=== PATIENT | male | born 1995 | race Caucasian/White ===

== ENCOUNTER → 2018-06-25 12:00 | Outpatient (CLI) | payer BC, SELFPAY ==
[2018-06-25 12:37] LABS: Basophils # 0.1 K/mm3 (0-0.2); Eosinophils # 0.1 K/mm3 (0.0-0.4); Eosinophils % 1.5 % (0.1-12.0); Hematocrit 48.2 % (42.0-52.0); Hemoglobin 16.7 g/dL (14.1-18.0); Lymphocytes # 1.9 K/mm3 (0.7-4.5); Lymphocytes % 33.3 % (10-50); Mean Corpuscular HGB Conc 34.7 g/dL (31.8-35.4); Mean Corpuscular Hemoglobin 29.6 pg (27.0-31.2); Mean Corpuscular Volume 85.3 fl (80-94); Mean Platelet Volume 7.2 fl (7.4-10.4); Monocytes # 0.5 K/mm3 (0.1-1.0); Monocytes % 9.4 % (1.7-9.3); Neutrophils # 3.1 K/mm3 (1.8-7.8); Neutrophils % 54.9 % (37.0-80.0); Platelet Count 302 K/mm3 (142-424); Red Blood Count 5.65 M/mm3 (4.60-6.20); Red Cell Distribution Width 12.4 % (11.5-17.5); White Blood Count 5.7 K/mm3 (4.8-10.8)
[2018-06-25 13:32] LABS: Alanine Aminotransferase 55 U/L (12-78); Albumin Level 4.8 gm/dL (3.4-5.0); Albumin/Globulin Ratio 1.4 (1.1-1.8); Alkaline Phosphatase 83 U/L (46-116); Amylase 46 U/L (25-115); Anion Gap 16.1 mEq/L (5-15); Aspartate Amino Transferase 20 U/L (15-37); Bilirubin,Total 1.3 mg/dL (0.2-1.0); Blood Urea Nitrogen 13 mg/dL (7-18); Calcium 9.7 mg/dL (8.5-10.1); Carbon Dioxide 24 mmol/L (21.0-32.0); Chloride 103 mmol/L (98-107); Creatinine,Serum 0.98 mg/dL (0.70-1.30); Estimated Glomerular Filt Rate 96 ml/min (>60); GFR (African American) 116 ML/MIN (>60); Globulin 3.5 gm/dl (1.3-3.2); Glucose 109 mg/dL (74-106); Lipase 125 u/L (73-393); Potassium 4.1 mmoL/L (3.5-5.1); Sodium 139 mmol/L (136-145); Total Protein,Serum 8.3 gm/dL (6.4-8.2)
== END ==
PROVIDERS: Visit Provider Physician Assistant
DX: R10.30 Lower abdominal pain, unspecified (principal)
CPT/HCPCS: 36415; 80053; 82150; 83690; 85025

== ENCOUNTER → 2019-10-31 16:44 | Outpatient (CLI) | payer BC, SELFPAY ==
[2019-10-31 17:03] LABS: Adenovirus,PCR Not Detected (NotDetected); Bordetella Pertussis Not Detected (NotDetected); Chlamydophila Pneumoniae, PCR Not Detected (NotDetected); Coronavirus 229E Not Detected (NotDetected); Coronavirus NL63 Not Detected (NotDetected); Coronavirus OC43 Not Detected (NotDetected); Coronovirus HKU1,PCR Not Detected (NotDetected); Human Metapneumovirus Not Detected (NotDetected); Influenza A, PCR Not Detected (NotDetected); Influenza AH1, 2009 Not Detected (NotDetected); Influenza AH1, PCR Not Detected (NotDetected); Influenza AH3,PCR Not Detected (NotDetected); Influenza B, PCR Not Detected (NotDetected); Mycoplasma Pneumoniae, PCR Not Detected (NotDetected); Parainfluenza 1, PCR Not Detected (NotDetected); Parainfluenza 2, PCR Not Detected (NotDetected); Parainfluenza 3, PCR Not Detected (NotDetected); Parainfluenza 4, PCR Not Detected (NotDetected); Respiratory Syncytial Virus Not Detected (NotDetected); Rhinovirus/Enterovirus Not Detected (NotDetected)
[2019-11-02 14:49] LABS: Covid-19 Nasal PCR Sendout Lex NOT DETECTED
== END ==
PROVIDERS: PCP Family Medicine; Visit Provider Family Medicine
DX: Z03.818 Encounter for observation for suspected exposure to other biological agents ruled out (principal)
CPT/HCPCS: 87486; 87581; 87633; 87798; U0004

== ENCOUNTER → 2020-04-06 12:56 | Outpatient (CLI) | payer BC, SELFPAY ==
--- NOTE | 2020-04-06 12:59 | US_ITS ---
PROCEDURE: US TESTICULAR CLINICAL INDICATION: EPIDIDYMORCHITIS Left testicular pain, history of undescended testicle COMPARISON: No exams were available for comparison FINDINGS: The right testicle has an unremarkable appearance measuring 4 4 x 2 cm. Blood flow is present. No right testicular mass. The right epididymis has an unremarkable appearance. No hydrocele. The left testicle has an abnormal appearance measuring 4 by 4.9 x 3.2 cm. Within the central aspect of the left testicle there is a hypoechoic mass. This is well-circumscribed measuring 3.7 x 2.6 cm. There are numerous small calcifications within the mass.. No hydrocele. There is slight hyperemia around the mass. There is a small spermatocele incidentally noted at 4 mm. IMPRESSION: 3.7 x 2.6 cm left testicular mass as described above suspicious for neoplasm and may represent a seminoma. Urology consult suggested. Dictated by: Berry Tinsley MD 04/06/2020 15:47 Berry Tinsley MD in [place] 04/06/2020 15:47
== END ==
PROVIDERS: PCP Family Medicine; Visit Provider Family Medicine
DX: N45.3 Epididymo-orchitis (principal)
CPT/HCPCS: 76870

== ENCOUNTER → 2020-04-16 16:26 | Outpatient (CLI) | payer BC, SELFPAY ==
[2020-04-16 16:29] LABS: MANUAL DIFFERENTIAL MANUAL DIFFERENTIAL (MANUAL DIFF)
[2020-04-16 17:45] LABS: Basophils # 0.1 K/mm3 (0-0.2); Eosinophils # 0.2 K/mm3 (0.0-0.4); Eosinophils % 1.5 % (0.1-12.0); Hematocrit 50.3 % (42.0-52.0); Hemoglobin 16.7 g/dL (14.1-18.0); Lymphocytes # 2.4 K/mm3 (0.7-4.5); Lymphocytes % 23.5 % (10-50); Mean Corpuscular HGB Conc 33.1 g/dL (31.8-35.4); Mean Corpuscular Hemoglobin 29.8 pg (27.0-31.2); Mean Corpuscular Volume 90.2 fl (80-94); Monocytes # 0.8 K/mm3 (0.1-1.0); Monocytes % 7.7 % (1.7-9.3); Neutrophils # 6.6 K/mm3 (1.8-7.8); Neutrophils % 66.3 % (37.0-80.0); Platelet Count 325 K/mm3 (142-424); Red Blood Count 5.58 M/mm3 (4.60-6.20); Red Cell Distribution Width 13.1 % (11.5-17.5)
[2020-04-16 17:49] LABS: Alanine Aminotransferase 66 U/L (12-78); Albumin Level 5.3 g/dl (3.5-5.0); Albumin/Globulin Ratio 1.5 (1.1-1.8); Alkaline Phosphatase 111 U/L (38-126); Anion Gap 15.1 mEq/L (5-15); Aspartate Amino Transferase 37 U/L (17-59); Bilirubin,Total 0.7 mg/dl (0.2-1.3); Blood Urea Nitrogen 12 mg/dl (9-20); Calcium 10.7 mg/dl (8.4-10.2); Carbon Dioxide 26 mmol/L (22.0-30.0); Chloride 102 mmol/L (98-107); Estimated Glomerular Filt Rate 139 ml/min (>60); GFR (African American) 168 ML/MIN (>60); Globulin 3.5 g/dL (1.3-3.2); Glucose 109 mg/dl (74-100); Potassium 4.1 mmoL/L (3.5-5.1); Sodium 139 mmol/L (136-145); Total Protein,Serum 8.8 g/dl (6.3-8.2)
[2020-04-16 18:16] LABS: HCG,Quantitative < 2 mIU/ml (0-5.42)
[2020-04-16 23:10] LABS: Eosinophils % 3 % (0-3); Lymphocytes % 24 % (10-50); Monocytes % 9 % (2-9); Neutrophils % 64 % (42-76); Platelet Estimate Normal; RBC Morphology Normal; Total Cells Counted 100
[2020-04-18 22:07] LABS: AFP, Tumor Marker 1.8 ng/mL (0.0-8.3)
== END ==
PROVIDERS: Visit Provider Urology
DX: N50.89 Other specified disorders of the male genital organs (principal)
CPT/HCPCS: 36415; 80053; 82105; 84702; 85007; 85014; 85018; 85048; 85049

== ENCOUNTER → 2020-04-23 09:34 | Outpatient (CLI) | payer BC, SELFPAY ==
--- NOTE | 2020-04-23 09:35 | CT_ITS ---
PROCEDURE: CT ABDOMEN PELVIS WO/W CON CLINICAL INDICATION: LEFT TESTICULAR MASS Found on ultrasound, history of undescended testicle COMPARISON: Testicular ultrasound 04/06/2020 TECHNIQUE: IV Contrast: 75ML Isovue 370 Oral Contrast None Axial images obtained with sagittal and coronal reformats. All CT scans at the facility use one or more dose reduction, viz: automated exposure control, ma/kV adjustment per patient size (including targeted exams where dose is matched to indication, i.e. head), or iterative reconstruction technique. FINDINGS: LOWER THORAX: No acute finding ABDOMEN & PELVIS: There is no intraperitoneal free air or free fluid. The adrenal glands kidneys, spleen, pancreas, liver, gallbladder have a normal appearance. Urinary bladder prostate gland and seminal vesicles are unremarkable. Imaging includes the scrotum and demonstrates 2 testicles in the scrotal sac. The left testicle contains a low density centrally consistent with the central mass visualized on ultrasound. No calcifications are visible by CT. There is no mass in the left or right inguinal canal. There are several diverticuli at the splenic flexure. There is diffuse wall thickening throughout the sigmoid colon which could be secondary to incomplete distension.. There is a normal right lower quadrant appendix. There is no abdominal or pelvic adenopathy. The major abdominal and pelvic vasculature is normal. Bony structures are unremarkable. IMPRESSION: An abnormal left testicle normally positioned in the scrotal sac. No inguinal mass or other worrisome finding in the abdomen or pelvis. Several diverticuli are located the splenic flexure. There is questionable wall thickening throughout the sigmoid colon versus nondistention. Dictated by: Radha Gilliam MD 04/23/2020 17:38 Radha Gilliam MD in [place] 04/23/2020 17:38
--- NOTE | 2020-04-23 09:35 | CT_ITS ---
PROCEDURE: CT CHEST WO CON CLINICAL INDICATION: LEFT TESTICULAR MASS History of undescended testicle COMPARISON: No exams were available for comparison TECHNIQUE: Axial images obtained with sagittal and coronal reformats. All CT scans at the facility use one or more dose reduction, viz: automated exposure control, ma/kV adjustment per patient size (including targeted exams where dose is matched to indication, i.e. head), or iterative reconstruction technique. FINDINGS: There is a dense calcified left associated calcified lingular granuloma. There is no infiltrate. There are no suspicious lung nodules. Visualized portions of the thyroid gland are unremarkable. Residual thymic tissue is present. There is no suspicious thoracic adenopathy. Vasculature is unremarkable. There is no pleural effusion. Refer to abdomen pelvis CT for findings in the abdomen and pelvis. IMPRESSION: Unremarkable chest CT. Dictated by: Radha Gilliam MD 04/23/2020 17:27 Radha Gilliam MD in [place] 04/23/2020 17:27
== END ==
PROVIDERS: PCP Family Medicine; Visit Provider Urology
DX: N50.89 Other specified disorders of the male genital organs (principal)
CPT/HCPCS: 71250; 74178; Q9967

== ENCOUNTER → 2020-04-28 13:45 | Outpatient (CLI) | payer BC, SELFPAY ==
[2020-04-28 14:37] LABS: Coronavirus 19 IgG Antibody Negative (Negative); Coronavirus 19 IgM Antibody Negative (Negative)
== END ==
PROVIDERS: PCP Family Medicine; Visit Provider Urology
DX: Z01.812 Encounter for preprocedural laboratory examination (principal); Z20.822 Contact with and (suspected) exposure to COVID-19; N50.89 Other specified disorders of the male genital organs
CPT/HCPCS: 36415; 86328

== ENCOUNTER 2020-04-30 07:37 | Day surgery (SDC) | payer BC, SELFPAY ==
[2020-04-24 11:46] VITALS: BMI 30.8
[2020-04-30] VITALS (11 sets, daily range): BP systolic 109–152; BP diastolic 63–94; PULSE 90–103; RESP 12–18; TEMP 36.4–43; O2SAT 96–99
--- NOTE | 2020-04-30 12:59 | P.PN_ITS ---
[facility] Anesthesia Checklist - Structural Data Admitted From: Home Planned Operative Procedure/s: l orchiectomy Consent for Planned Operative Procedure(s) Verified: Yes - Additional verifications Anesthesia Reactions: No Hx Blood Transfusions: No Blood Transfusion Reaction: No - Airway Assessment C-Spine Mobility Assessed: Yes TMJ Mobility Assessed: Yes Dentition: Good Dentition - Neurological Assessment Level of Consciousness: Awake, Alert, Appropriate - Anesthesia Plan Anesthesia Risk discussed: Yes Anesthesia Plan: Verified ASA Class: II Anesthesia Type: General [facility] History I have reviewed the patient's past medical history: Yes Medical History: Reports:: Atrial Fibrillation Denies:: Cancer, Diabetes Mellitus Type 1, Diabetes Mellitus Type 2, Internal Pacemaker, MRSA, Seizures *Have you ever received a pneumonia vaccine?: No *Have you received a flu vaccine this season?: No Other Medical History: Denies: Blood Transfusion Reaction Anesthesia experience/problems:: none Laterality Cases: Bilateral: Tonsillectomy Other Surgeries: Yes: No Previous Surgery, Cardiac Catheterization. No: Pacemaker Amputation: No Fractures: No - *Social History Last grade of school completed: High school graduate Smoking Status: Never smoker Alcohol Intake: never Alcohol Intake Frequency:: holidays/special occasions only Substance Use Type: denies use Last Used Substance: unknown *Occupational Status:: employed Housing: house Household Members: family *Travel in the last 8 weeks: None Family Hx:: Cancer
--- NOTE | 2020-04-30 13:00 | HMH.ANESI ---
[facility] Anesthesia Record Part I Intake, IV Amount: 1,800 Estimated blood loss (mL): 50 Urine output (mL): 0 Blood Pressure: 133/81 SaO2: 97 Pulse Rate: 103 Respiratory Rate: 12 Temperature: 97.5 F Patient is:: Awake, Stable Stable to PACU at:: 12:55
--- NOTE | 2020-04-30 14:42 | HMH.OPNOTE ---
Date of procedure: 04/30/20 Pre-op Diagnosis:: Left testicular mass Post-op Diagnosis:: Same Procedure performed:: Left radical orchiectomy, complicated Surgeon:: Sesar Mendoza MD CARTON FOLDER:: Negro Gonzalez Anesthesia: GETA Estimated blood loss (mL): 20 Clinical Note:: 24-year-old white male with findings of the left testicular mass on exam. Scrotal ultrasound consistent with a intratesticular mass. Preoperative tumor markers are within normal limits and preoperative CT scan showed no evidence of metastatic disease. Patient returns today for radical left orchiectomy. Operative findings:: Left testicular mass, no evidence of gross abnormalities. Operative note:: Patient taken to the operating room after informed consent was obtained. Was placed on the operating table in the supine position and general anesthesia administered. Preoperative antibiotics and sequential compression devices placed. Was then prepped and draped in the standard surgical fashion. Patient has had a prior groin incision for a left undescended testicle at age 10. The old scar is present in the left lower quadrant. Marking pen was used to roel our incision which went right over the old incision. It started 2 cm above and lateral to the pubic tubercle extended for about 10 cm laterally towards the internal ring. Scalpel then used to incise the skin and blunt and sharp dissection performed down to the external oblique fascia. Due to his previous surgery the external ring was not as defined as normal. The external oblique fascia was opened and extended for the length of the incision. The ilioinguinal nerve was noted towards the middle of the incision and crossed the incision to the upper part of the incision. Sharp and blunt dissection was used to take it off of the upper leaflet laid down along the lower leaflet of the fascial layer. We then began dissecting the cord structures from the inside of the fascia superiorly and inferiorly. Once we were able to get around the cord structures a Domitila drain was placed around it and doubly passed and secured tightly. We then dissected proximally and distally. Distally at the external ring it was very scarred and an extensive dissection was needed to free the cord structure up. Once it was freed up pressure from the scrotal region was used to push the testicle back up into the and through the external ring. The gubernacular tissue was very adherent to the inferior portion of the testicle as well and careful sharp and blunt dissection was used to dissect the gubernaculum off of the inferior portion of the testicle. A clamp was placed across the gubernaculum and the testicle was freed up and it was brought up through the incision. Chromic tie was placed across the gubernacular tissue and tied securely and the clamp removed. Attention was turned to the testicle and we freed the cord up to the internal ring and 3 clamps were placed across the testicle and the testicle was removed above the most distal clamp passed off as specimen. Inspection of the testicle revealed no dissection into the testicular tissue. A 0 silk stick tie was placed above the second clamp and tied securely. An 0 silk tie was then passed above the most proximal clamp and tied securely. Clamps were removed and the end of the cord was cauterized and allowed to retract back up through the internal ring. We then irrigated the wound and inspection of the scrotal tissue and abdominal wound revealed no significant bleeding. Hemostasis was achieved of some small venous oozing. A of Vicryl suture was placed over the internal ring closed. The upper fascial leaflet was defined very well but the inferior portion of the fascia was very adherent to the underlying tissues in the sharp and blunt dissection was used to free up the inferior aspect of the external oblique fascia so that we could close it without tension. Towards the external ring however there was not as much 3
--- NOTE | 2020-05-01 08:59 | P.PN_ITS ---
[facility] Anesthesia Record Part II Discharge Time: 13:25 Destination: Surgical Day Care (OP Surgery) PACU nurse assessment reviewed?: Yes Patient Condition:: Good Anesthesia Complications:: None Swallowing reflex intact?: Yes Cyanosis?: No Blood Pressure: 139/70 Pulse Rate: 94 Temperature: 97.8 F Mental Status: Alert & Oriented Pain level:: 3 Nausea and/or vomitting:: None Intake, IV Amount: 0
[2020-05-01 09:00] VITALS: BP 139/70; PULSE 94; TEMP 36.6
== END 2020-04-30 14:05 | disposition home or self-care (01) ==
PROVIDERS: PCP Family Medicine; Visit Provider Urology
PROC: (CPT 54520; principal; 2020-04-30 09:00)
DX: N50.89 Other specified disorders of the male genital organs (principal); I48.91 Unspecified atrial fibrillation; Z79.899 Other long term (current) drug therapy
CPT/HCPCS: 54520; 96374; J2405

== ENCOUNTER → 2020-08-13 09:15 | Outpatient (CLI) | payer BC, SELFPAY ==
--- NOTE | 2020-08-13 09:20 | CT_ITS ---
PROCEDURE: CT ABDOMEN PELVIS W CON CLINICAL INDICATION: TESTICULAR CA Follow up Lt testicular cancer No chemo No new symptoms Prior on pacs COMPARISON: CT CT ABDOMEN PELVIS WO/W CON from 04/23/2020 TECHNIQUE: IV Contrast: 75ML Isovue 370 Oral Contrast None Axial images obtained with sagittal and coronal reformats. All CT scans at the facility use one or more dose reduction, viz: automated exposure control, ma/kV adjustment per patient size (including targeted exams where dose is matched to indication, i.e. head), or iterative reconstruction technique. FINDINGS: LOWER THORAX: No acute finding ABDOMEN & PELVIS: Fatty appearance of the liver. No focal liver lesions identified. Gallbladder, spleen, adrenal glands, pancreas, and kidneys have an unremarkable appearance. There is a tiny cortical cyst in the upper pole of the left kidney at approximately 4 mm. No retroperitoneal adenopathy. No intestinal obstruction or free air. The appendix has an unremarkable appearance. No mesenteric adenopathy. No pelvic mass or abnormal fluid collection. Increased subcutaneous density in left groin consistent with postsurgical changes. Interval left orchiectomy. No acute bony findings are evident. There is a tiny umbilical hernia containing fat. IMPRESSION: 1. No evidence of metastatic disease. 2. Interval left orchectomy Dictated by: Berry Tinsley MD 08/14/2020 08:42 Berry Tinsley MD in [place] 08/14/2020 08:42
--- NOTE | 2020-08-13 09:30 | XR_ITS ---
PROCEDURE: XR CHEST 2V CLINICAL HISTORY: TESTICULAR CA COMPARISON: US US TESTICULAR from 04/06/[address] CHEST WO CON from 04/23/2020 FINDINGS: The cardiomediastinal silhouette and pulmonary vascularity are within normal limits. The lungs are clear without infiltrates, suspicious nodules, or pleural effusions. Calcified granuloma is present within the lingula in there are calcified nodes in the left AP window. No suspicious pulmonary nodules apparent. No acute bony abnormalities. IMPRESSION: No acute findings. Dictated by: Berry Tinsley MD 08/13/2020 12:05 Berry Tinsley MD in [place] 08/13/2020 12:05
== END ==
PROVIDERS: PCP Family Medicine; Visit Provider Internal Medicine Medical Oncology
DX: C62.92 Malignant neoplasm of left testis, unspecified whether descended or undescended (principal)
CPT/HCPCS: 71046; 74177; Q9967

== ENCOUNTER → 2020-08-24 14:51 | Outpatient (CLI) | payer BC, SELFPAY ==
[2020-08-24 15:29] LABS: Basophils # 0.1 K/mm3 (0-0.2); Basophils % 1.7 % (0.1-2.0); Eosinophils # 0.2 K/mm3 (0.0-0.4); Eosinophils % 2.4 % (0.1-12.0); Hematocrit 48.3 % (42.0-52.0); Hemoglobin 16.9 g/dL (14.1-18.0); Lymphocytes # 2.7 K/mm3 (0.7-4.5); Lymphocytes % 34.1 % (10-50); Mean Corpuscular HGB Conc 35.1 g/dL (31.8-35.4); Mean Corpuscular Volume 85.7 fl (80-94); Mean Platelet Volume 7.2 fl (7.4-10.4); Monocytes # 0.8 K/mm3 (0.1-1.0); Monocytes % 10.4 % (1.7-9.3); Neutrophils # 4.1 K/mm3 (1.8-7.8); Neutrophils % 51.4 % (37.0-80.0); Platelet Count 278 K/mm3 (142-424); Red Blood Count 5.64 M/mm3 (4.60-6.20); Red Cell Distribution Width 12.8 % (11.5-17.5); White Blood Count 7.9 K/mm3 (4.8-10.8)
[2020-08-24 15:52] LABS: Chloride 102 mmol/L (98-107); Potassium 4.3 mmoL/L (3.5-5.1); Sodium 141 mmol/L (136-145)
[2020-08-24 15:54] LABS: HCG Qualitative, Serum Negative (Negative)
[2020-08-24 15:55] LABS: Alanine Aminotransferase 57 U/L (12-78); Albumin Level 5.2 g/dl (3.5-5.0); Albumin/Globulin Ratio 1.6 (1.1-1.8); Alkaline Phosphatase 86 U/L (38-126); Anion Gap 16.3 mEq/L (5-15); Aspartate Amino Transferase 35 U/L (17-59); Blood Urea Nitrogen 12 mg/dl (9-20); Carbon Dioxide 27 mmol/L (22.0-30.0); Estimated Glomerular Filt Rate 104 ml/min (>60); GFR (African American) 125 ML/MIN (>60); Globulin 3.2 g/dL (1.3-3.2); Total Protein,Serum 8.4 g/dl (6.3-8.2)
[2020-08-24 15:56] LABS: Calcium 9.9 mg/dl (8.4-10.2); Glucose 91 mg/dl (74-100)
[2020-08-26 10:12] LABS: AFP, Tumor Marker 1.6 ng/mL (0.0-8.3)
== END ==
PROVIDERS: Visit Provider Internal Medicine Medical Oncology
DX: C62.92 Malignant neoplasm of left testis, unspecified whether descended or undescended (principal)
CPT/HCPCS: 36415; 80053; 82105; 84703; 85025

== ENCOUNTER → 2020-11-23 09:28 | Outpatient (CLI) | payer BC, SELFPAY ==
--- NOTE | 2020-11-23 09:32 | CT_ITS ---
PROCEDURE: CT ABDOMEN PELVIS W CON CLINICAL INDICATION: TESTICULAR CANCER COMPARISON: CT CT ABDOMEN PELVIS W CON from 08/13/2020 TECHNIQUE: IV Contrast: 75ML Isovue 370 Oral Contrast 450ml Redicat Axial images obtained with sagittal and coronal reformats. All CT scans at the facility use one or more dose reduction, viz: automated exposure control, ma/kV adjustment per patient size (including targeted exams where dose is matched to indication, i.e. head), or iterative reconstruction technique. FINDINGS: LOWER THORAX: No acute finding ABDOMEN & PELVIS: The liver, spleen, adrenal glands, and gallbladder have an unremarkable appearance. No renal or ureteral calculi. No renal mass. There are few small mesenteric lymph nodes measuring up to 1 cm. These appear slightly more prominent. This however is of questionable clinical significance as the nodes do not meet the criteria for adenopathy. Continued follow-up is suggested. No pelvic mass or abnormal fluid collection. No acute bony anomalies. IMPRESSION: No significant change. There are few mesenteric lymph nodes in the right lower quadrant which appears slightly more prominent which is of questionable clinical significance. Continued follow-up suggested. Dictated by: Berry Tinsley MD 11/26/2020 09:07 Berry Tinsley MD in [place] 11/26/2020 09:07
== END ==
PROVIDERS: PCP Family Medicine; Visit Provider Internal Medicine Medical Oncology
DX: C62.92 Malignant neoplasm of left testis, unspecified whether descended or undescended (principal)
CPT/HCPCS: 74177; Q9967

== ENCOUNTER → 2020-11-29 10:27 | Outpatient (CLI) | payer BC, SELFPAY ==
[2020-11-29 10:59] LABS: Basophils # 0.1 K/mm3 (0-0.2); Basophils % 1.9 % (0.1-2.0); Eosinophils # 0.2 K/mm3 (0.0-0.4); Hematocrit 48.2 % (42.0-52.0); Lymphocytes # 2.1 K/mm3 (0.7-4.5); Lymphocytes % 39.1 % (10-50); Mean Corpuscular HGB Conc 33.3 g/dL (31.8-35.4); Mean Corpuscular Hemoglobin 30.5 pg (27.0-31.2); Mean Corpuscular Volume 91.5 fl (80-94); Mean Platelet Volume 7.8 fl (7.4-10.4); Monocytes # 0.5 K/mm3 (0.1-1.0); Monocytes % 8.6 % (1.7-9.3); Neutrophils # 2.5 K/mm3 (1.8-7.8); Neutrophils % 47.4 % (37.0-80.0); Platelet Count 290 K/mm3 (142-424); Red Blood Count 5.27 M/mm3 (4.60-6.20); Red Cell Distribution Width 13.3 % (11.5-17.5); White Blood Count 5.3 K/mm3 (4.8-10.8)
[2020-11-29 11:50] LABS: Alanine Aminotransferase 54 U/L (12-78); Albumin Level 4.8 g/dl (3.5-5.0); Albumin/Globulin Ratio 1.8 (1.1-1.8); Alkaline Phosphatase 82 U/L (38-126); Anion Gap 16.4 mEq/L (5-15); Aspartate Amino Transferase 40 U/L (17-59); Blood Urea Nitrogen 10 mg/dl (9-20); Calcium 9.9 mg/dl (8.4-10.2); Carbon Dioxide 26 mmol/L (22.0-30.0); Chloride 101 mmol/L (98-107); Estimated Glomerular Filt Rate 103 ml/min (>60); GFR (African American) 124 ML/MIN (>60); Globulin 2.6 g/dL (1.3-3.2); Glucose 109 mg/dl (74-100); Lactate Dehydrogenase 192 U/L (313-618); Potassium 4.4 mmoL/L (3.5-5.1); Sodium 139 mmol/L (136-145); Total Protein,Serum 7.4 g/dl (6.3-8.2)
[2020-11-29 12:07] LABS: HCG,Quantitative < 2 mIU/ml (0-5.42)
[2020-11-30 08:44] LABS: AFP, Tumor Marker 1.5 ng/mL (0.0-8.3)
== END ==
PROVIDERS: Visit Provider Internal Medicine Medical Oncology
DX: C62.92 Malignant neoplasm of left testis, unspecified whether descended or undescended (principal)
CPT/HCPCS: 36415; 80053; 82105; 83615; 84702; 85025

== ENCOUNTER → 2021-02-15 09:45 | Outpatient (CLI) | payer BC, SELFPAY ==
--- NOTE | 2021-02-15 09:49 | CT_ITS ---
PROCEDURE INFORMATION: Exam: CT Abdomen And Pelvis With Contrast Exam date and time: 02/15/2021 9:49 AM Age: 25 years old Clinical indication: Condition or disease; Other: Testicular cancer; Prior surgery; Additional info: Testicular cancer. PT had 1 testicle removed once dx. Rescanned lower pelvis to include testicles. Reformated cor and sag. TECHNIQUE: Imaging protocol: Computed tomography of the abdomen and pelvis with contrast. Radiation optimization: All CT scans at this facility use at least one of these dose optimization techniques: automated exposure control; mA and/or kV adjustment per patient size (includes targeted exams where dose is matched to clinical indication); or iterative reconstruction. Contrast material: ISOVUE; Contrast volume: 75 ml; Contrast route: IV; COMPARISON: CT ABDOMEN PELVIS W CON 11/23/2020 10:23 AM FINDINGS: Liver: Normal. No mass. Gallbladder and bile ducts: Normal. No calcified stones. No ductal dilation. Pancreas: Normal. No ductal dilation. Spleen: Normal. No splenomegaly. Adrenal glands: Normal. No mass. Kidneys and ureters: Stable 5 mm left cortical renal cyst in the superior pole, simple in appearance. No hydronephrosis. Stomach and bowel: Unremarkable. No obstruction. No mucosal thickening. Appendix: No evidence of appendicitis. Intraperitoneal space: Unremarkable. No free air. No significant fluid collection. Vasculature: Unremarkable. No abdominal aortic aneurysm. Lymph nodes: Unremarkable. No enlarged lymph nodes. Urinary bladder: Unremarkable as visualized. Reproductive: Previous left orchiectomy. Bones/joints: Unremarkable. No acute fracture. Soft tissues: Unremarkable. IMPRESSION: 1. Previous left orchiectomy. 2. Stable 5 mm left cortical renal cyst in the superior pole, simple in appearance. No hydronephrosis. 3. No evidence of metastatic disease.
[2021-02-15 11:02] LABS: Basophils # 0.1 K/mm3 (0-0.2); Basophils % 1.3 % (0.1-2.0); Eosinophils # 0.2 K/mm3 (0.0-0.4); Eosinophils % 3.1 % (0.1-12.0); Hematocrit 47.2 % (42.0-52.0); Hemoglobin 16.6 g/dL (14.1-18.0); Lymphocytes # 2.2 K/mm3 (0.7-4.5); Lymphocytes % 39.9 % (10-50); Mean Corpuscular HGB Conc 35.1 g/dL (31.8-35.4); Mean Corpuscular Hemoglobin 30.6 pg (27.0-31.2); Mean Corpuscular Volume 87.3 fl (80-94); Mean Platelet Volume 7.1 fl (7.4-10.4); Monocytes # 0.5 K/mm3 (0.1-1.0); Monocytes % 8.3 % (1.7-9.3); Neutrophils # 2.6 K/mm3 (1.8-7.8); Neutrophils % 47.4 % (37.0-80.0); Platelet Count 281 K/mm3 (142-424); Red Blood Count 5.41 M/mm3 (4.60-6.20); Red Cell Distribution Width 12.6 % (11.5-17.5); White Blood Count 5.4 K/mm3 (4.8-10.8)
[2021-02-15 11:34] LABS: Alanine Aminotransferase 57 U/L (12-78); Anion Gap 11.2 mEq/L (5-15); Aspartate Amino Transferase 38 U/L (17-59); Bilirubin,Total 0.9 mg/dl (0.2-1.3); Blood Urea Nitrogen 14 mg/dl (9-20); Calcium 9.9 mg/dl (8.4-10.2); Carbon Dioxide 25 mmol/L (22.0-30.0); Chloride 103 mmol/L (98-107); Estimated Glomerular Filt Rate 118 ml/min (>60); GFR (African American) 143 ML/MIN (>60); Glucose 104 mg/dl (74-100); Potassium 4.2 mmoL/L (3.5-5.1); Sodium 135 mmol/L (136-145)
[2021-02-15 11:35] LABS: Albumin Level 4.5 g/dl (3.5-5.0); Albumin/Globulin Ratio 1.7 (1.1-1.8); Alkaline Phosphatase 76 U/L (38-126); Globulin 2.7 g/dL (1.3-3.2); Lactate Dehydrogenase 195 U/L (313-618); Total Protein,Serum 7.2 g/dl (6.3-8.2)
[2021-02-15 12:00] LABS: HCG,Quantitative < 2 mIU/ml (0-5.42)
[2021-02-16 09:13] LABS: AFP, Tumor Marker 1.6 ng/mL (0.0-8.3)
== END ==
PROVIDERS: PCP Family Medicine; Visit Provider Internal Medicine Medical Oncology
DX: C62.92 Malignant neoplasm of left testis, unspecified whether descended or undescended (principal)
CPT/HCPCS: 36415; 74177; 80053; 82105; 83615; 84702; 85025; Q9967

== ENCOUNTER → 2021-06-10 07:48 | Outpatient (CLI) | payer BC, SELFPAY ==
--- NOTE | 2021-06-10 07:54 | CT_ITS ---
FINAL REPORT TECHNIQUE: After the administration of intravenous contrast, axial images were obtained through the abdomen and pelvis by computed tomography. This study was performed with technique to keep radiation doses as low as reasonably achievable, (ALARA). Individualized dose reduction techniques using automated exposure control or adjustment of the MA and/or KV according to the patient's size were employed. CLINICAL HISTORY: MALIGNANT NEOPLASM TESTIS COMPARISON: 04/23/2020 FINDINGS: Abdomen: The lung bases are clear. The liver is mildly fatty infiltrated. The spleen is unremarkable. The adrenals are normal. The pancreas is unremarkable. The kidneys enhance appropriately. The aorta is normal in caliber. There is no free fluid or adenopathy. Pelvis: The appendix is normal. There are postoperative changes in the left inguinal region. There are small, stable lower quadrant mesenteric lymph nodes which are likely reactive. The urinary bladder is unremarkable. There is no free fluid, mass or adenopathy. IMPRESSION: Stable, small lower quadrant mesenteric lymph nodes, likely reactive. No acute process. Reviewed, Interpreted and Dictated by Justus Yeh III, MD Transcribed by Sylwia Murrieta Authenticated by Justus Yeh III, MD on 06/10/2021 09:16:58 AM [facility]
--- NOTE | 2021-06-10 08:12 | XR_ITS ---
FINAL REPORT CLINICAL HISTORY: Malignant NEOPLASM TESTIS FINDINGS: Two views of the chest were obtained. The heart size and pulmonary vascularity are within normal limits. The mediastinum is normal. No acute pulmonary abnormality is identified. There is no pneumothorax. The bony thorax is intact. IMPRESSION: No active cardiopulmonary disease. Reviewed, Interpreted and Dictated by Justus Yeh III, MD Transcribed by Christian Banerjee Authenticated by Justus Yeh III, MD on 06/10/2021 09:17:[address] [facility]
[2021-06-10 08:47] LABS: Basophils # 0.1 K/mm3 (0-0.2); Basophils % 1.8 % (0.1-2.0); Eosinophils # 0.2 K/mm3 (0.0-0.4); Eosinophils % 3.4 % (0.1-12.0); Hematocrit 45.4 % (42.0-52.0); Hemoglobin 15.3 g/dL (14.1-18.0); Lymphocytes # 2.3 K/mm3 (0.7-4.5); Lymphocytes % 44.9 % (10-50); Mean Corpuscular HGB Conc 33.7 g/dL (31.8-35.4); Mean Corpuscular Hemoglobin 30.2 pg (27.0-31.2); Mean Corpuscular Volume 89.7 fl (80-94); Mean Platelet Volume 7.7 fl (7.4-10.4); Monocytes # 0.4 K/mm3 (0.1-1.0); Monocytes % 8.3 % (1.7-9.3); Neutrophils # 2.1 K/mm3 (1.8-7.8); Neutrophils % 41.6 % (37.0-80.0); Platelet Count 263 K/mm3 (142-424); Red Blood Count 5.07 M/mm3 (4.60-6.20); Red Cell Distribution Width 13.1 % (11.5-17.5); White Blood Count 5.1 K/mm3 (4.8-10.8)
[2021-06-10 09:49] LABS: Chloride 102 mmol/L (98-107); Potassium 4.6 mmoL/L (3.5-5.1); Sodium 136 mmol/L (136-145)
[2021-06-10 09:51] LABS: Blood Urea Nitrogen 10 mg/dl (9-20)
[2021-06-10 09:52] LABS: Alanine Aminotransferase 68 U/L (12-78); Albumin Level 4.3 g/dl (3.5-5.0); Albumin/Globulin Ratio 1.7 (1.1-1.8); Alkaline Phosphatase 76 U/L (38-126); Anion Gap 11.6 mEq/L (5-15); Aspartate Amino Transferase 42 U/L (17-59); Bilirubin,Total 0.9 mg/dl (0.2-1.3); Carbon Dioxide 27 mmol/L (22.0-30.0); Estimated Glomerular Filt Rate 118 ml/min (>60); GFR (African American) 143 ML/MIN (>60); Globulin 2.6 g/dL (1.3-3.2); Glucose 100 mg/dl (74-100); Total Protein,Serum 6.9 g/dl (6.3-8.2)
[2021-06-10 10:16] LABS: HCG,Quantitative < 2 mIU/ml (0-5.42)
[2021-06-10 10:24] LABS: Lactate Dehydrogenase 191 U/L (313-618)
[2021-06-11 08:35] LABS: AFP, Tumor Marker 1.7 ng/mL (0.0-5.7)
== END ==
PROVIDERS: PCP Family Medicine; Visit Provider Internal Medicine Medical Oncology
DX: C62.92 Malignant neoplasm of left testis, unspecified whether descended or undescended (principal)
CPT/HCPCS: 36415; 71046; 74177; 80053; 82105; 83615; 84702; 85025; Q9967

== ENCOUNTER → 2021-10-03 08:53 | Outpatient (CLI) | payer BC, SELFPAY ==
--- NOTE | 2021-10-03 08:58 | XR_ITS ---
FINAL REPORT CLINICAL HISTORY: .HX TESTICULAR CANCER FINDINGS: PA and lateral views of the chest are obtained. There is no prior exam for comparison. The cardiac and mediastinal silhouettes are within normal limits. The lungs are clear. There is no pleural effusion, pneumothorax, or acute osseous abnormality. IMPRESSION: No radiographic evidence of acute cardiac or pulmonary disease. Reviewed, Interpreted and Dictated by Paola Elizondo MD Transcribed by Marga Gallo Authenticated and [facility]
--- NOTE | 2021-10-03 08:58 | CT_ITS ---
FINAL REPORT TECHNIQUE: Pre-and postcontrast axial imaging of the abdomen and pelvis was obtained. This study was performed with techniques to keep radiation doses as low as reasonably achievable, (ALARA). Individualized dose reduction technique using automated exposure control or adjustment of mA and/or kV according to the patient's size were employed. CLINICAL HISTORY: TESTICULAR CANCER FINDINGS: The lung bases are clear. The liver is diffusely fatty infiltrated. The gallbladder is present. The spleen, adrenal glands, and pancreas are unremarkable. There is no hydronephrosis or solid renal mass. On precontrast imaging, no renal stones are identified. Abdominal GI tract is unremarkable. There is no lymphadenopathy or ascites. The pelvic organs and pelvic portions of the GI tract, including the appendix, are within normal limits. There are changes from left orchiectomy. The prostate is normal. There is no lymphadenopathy or ascites. No acute osseous abnormalities identified. IMPRESSION: No evidence of metastatic disease. Fatty liver. Reviewed, Interpreted and Dictated by Paola Elizondo MD Transcribed by Christian Banerjee Authenticated and [facility]
[2021-10-03 10:41] LABS: Basophils # 0.2 K/mm3 (0-0.2); Basophils % 2.5 % (0.1-2.0); Eosinophils # 0.2 K/mm3 (0.0-0.4); Eosinophils % 2.8 % (0.1-12.0); Hematocrit 49.5 % (42.0-52.0); Lymphocytes # 2.8 K/mm3 (0.7-4.5); Lymphocytes % 37.8 % (10-50); Mean Corpuscular HGB Conc 32.3 g/dL (31.8-35.4); Mean Corpuscular Hemoglobin 29.6 pg (27.0-31.2); Mean Corpuscular Volume 91.7 fl (80-94); Monocytes # 0.7 K/mm3 (0.1-1.0); Monocytes % 9.3 % (1.7-9.3); Neutrophils # 3.5 K/mm3 (1.8-7.8); Neutrophils % 47.7 % (37.0-80.0); Platelet Count 320 K/mm3 (142-424); Red Cell Distribution Width 13.1 % (11.5-17.5); White Blood Count 7.3 K/mm3 (4.8-10.8)
[2021-10-03 12:19] LABS: Chloride 102 mmol/L (98-107); Potassium 4.9 mmoL/L (3.5-5.1); Sodium 137 mmol/L (136-145)
[2021-10-03 12:21] LABS: Alanine Aminotransferase 74 U/L (12-78); Aspartate Amino Transferase 45 U/L (17-59); Blood Urea Nitrogen 11 mg/dl (9-20); Estimated Glomerular Filt Rate 103 ml/min (>60); GFR (African American) 124 ML/MIN (>60)
[2021-10-03 12:22] LABS: Albumin Level 4.5 g/dl (3.5-5.0); Albumin/Globulin Ratio 1.7 (1.1-1.8); Alkaline Phosphatase 87 U/L (38-126); Anion Gap 12.9 mEq/L (5-15); Bilirubin,Total 0.7 mg/dl (0.2-1.3); Calcium 9.8 mg/dl (8.4-10.2); Carbon Dioxide 27 mmol/L (22.0-30.0); Globulin 2.7 g/dL (1.3-3.2); Glucose 103 mg/dl (74-100); Total Protein,Serum 7.2 g/dl (6.3-8.2)
[2021-10-03 12:32] LABS: Lactate Dehydrogenase 177 U/L (313-618)
[2021-10-03 13:37] LABS: HCG,Quantitative < 2 mIU/ml (0-5.42)
[2021-10-04 11:16] LABS: AFP, Tumor Marker 1.6 ng/mL (0.0-5.7)
== END ==
PROVIDERS: PCP Family Medicine; Visit Provider Internal Medicine Medical Oncology
DX: C62.92 Malignant neoplasm of left testis, unspecified whether descended or undescended (principal)
CPT/HCPCS: 36415; 71046; 74178; 80053; 82105; 83615; 84702; 85025; Q9967

== ENCOUNTER → 2022-04-30 09:02 | Outpatient (CLI) | payer OTHER, SELFPAY ==
--- NOTE | 2022-04-30 09:09 | CT_ITS ---
FINAL REPORT TECHNIQUE: Axial CT images of the abdomen and pelvis were obtained after the administration of oral and iv contrast. Coronal reformatted images were also obtained and reviewed.This study was performed with techniques to keep radiation doses as low as reasonably achievable (ALARA). Individualized dose reduction techniques using automated exposure control or adjustment of mA and/or kV according to the patient's size were employed. CLINICAL HISTORY: TESTICULAR CANCER, routine f/u scan. COMPARISON: 10/03/2021 FINDINGS: CT OF THE ABDOMEN AND PELVIS WITH CONTRAST Abdomen: The lung bases are clear. The heart is normal in size. The liver is fatty infiltrated.. The spleen is unremarkable. No adrenal mass is present. The pancreas has an unremarkable appearance. The kidneys are normal, without evidence of mass or hydronephrosis. The aorta is normal in caliber. There is no mass or adenopathy. Pelvis: The appendix is not well-visualized. The urinary bladder is unremarkable. No inflammatory process is seen. There is no evidence of mass or adenopathy. There is no evidence of bowel obstruction. There are postoperative changes in the left inguinal region. There are stable small bilateral inguinal nodes. IMPRESSION: Mild fatty infiltration of the liver. No evidence of metastatic disease. Reviewed, Interpreted and Dictated by Justus Yeh III, MD Transcribed by Pari Shirley Authenticated and [facility]
--- NOTE | 2022-04-30 09:10 | XR_ITS ---
FINAL REPORT CLINICAL HISTORY: TESTICULAR CANCER COMPARISON: 10/03/2021 FINDINGS: Two views of the chest were obtained. The heart size and pulmonary vascularity are within normal limits. The mediastinum is normal. No acute pulmonary abnormality is identified. There is no pneumothorax. The bony thorax is intact. IMPRESSION: No active cardiopulmonary disease. Reviewed, Interpreted and Dictated by Justus Yeh III, MD Transcribed by Mandy Posadas Authenticated and [facility]
[2022-04-30 10:36] LABS: Basophils # 0.1 K/mm3 (0-0.2); Basophils % 1.5 % (0.1-2.0); Eosinophils # 0.2 K/mm3 (0.0-0.4); Eosinophils % 2.3 % (0.1-12.0); Hematocrit 50.5 % (42.0-52.0); Hemoglobin 16.5 g/dL (14.1-18.0); Lymphocytes # 2.3 K/mm3 (0.7-4.5); Lymphocytes % 32.8 % (10-50); Mean Corpuscular HGB Conc 32.6 g/dL (31.8-35.4); Mean Corpuscular Hemoglobin 29.5 pg (27.0-31.2); Mean Corpuscular Volume 90.7 fl (80-94); Mean Platelet Volume 7.5 fl (7.4-10.4); Monocytes # 0.6 K/mm3 (0.1-1.0); Monocytes % 8.8 % (1.7-9.3); Neutrophils # 3.8 K/mm3 (1.8-7.8); Neutrophils % 54.6 % (37.0-80.0); Platelet Count 269 K/mm3 (142-424); Red Blood Count 5.57 M/mm3 (4.60-6.20); Red Cell Distribution Width 13.4 % (11.5-17.5)
[2022-04-30 10:57] LABS: Chloride 104 mmol/L (98-107)
[2022-04-30 10:58] LABS: Potassium 4.6 mmoL/L (3.5-5.1)
[2022-04-30 11:00] LABS: Alanine Aminotransferase 64 U/L (12-78); Alkaline Phosphatase 87 U/L (38-126); Aspartate Amino Transferase 39 U/L (17-59); Bilirubin,Total 1.1 mg/dl (0.2-1.3); Blood Urea Nitrogen 14 mg/dl (9-20); Carbon Dioxide 28 mmol/L (22.0-30.0); Estimated Glomerular Filt Rate 102 ml/min (>60); GFR (African American) 123 ML/MIN (>60)
[2022-04-30 11:01] LABS: Albumin/Globulin Ratio 1.8 (1.1-1.8); Calcium 9.6 mg/dl (8.4-10.2); Globulin 2.8 g/dL (1.3-3.2); Glucose 109 mg/dl (74-100); Total Protein,Serum 7.8 g/dl (6.3-8.2)
[2022-04-30 11:18] LABS: HCG,Quantitative < 2 mIU/ml (0-5.42)
[2022-04-30 11:26] LABS: Lactate Dehydrogenase 180 U/L (313-618)
[2022-04-30 14:21] LABS: Anion Gap 12.6 mEq/L (5-15); Sodium 140 mmol/L (136-145)
[2022-05-01 12:38] LABS: AFP, Tumor Marker <1.8 ng/mL (0.0-5.7)
== END ==
PROVIDERS: PCP Family Medicine; Visit Provider Internal Medicine Medical Oncology
DX: Z85.47 Personal history of malignant neoplasm of testis (principal)
CPT/HCPCS: 36415; 71046; 74177; 80053; 82105; 83615; 84702; 85025; Q9967

== ENCOUNTER → 2022-11-19 09:18 | Outpatient (CLI) | payer OTHER, SELFPAY ==
--- NOTE | 2022-11-19 09:23 | CT_ITS ---
FINAL REPORT CLINICAL HISTORY: hx of testicular cancer 2 years ago, left testicle removed, no chemo or radiation COMPARISON: 04/30/2022 FINDINGS: CT OF THE ABDOMEN AND PELVIS WITH CONTRAST Axial CT images of the abdomen and pelvis were obtained after the administration of oral and iv contrast. Coronal and sagittal reformatted images were also obtained and reviewed.This study was performed with techniques to keep radiation doses as low as reasonably achievable (ALARA). Individualized dose reduction techniques using automated exposure control or adjustment of mA and/or kV according to the patient's size were employed. Abdomen: The lung bases are clear. The heart is normal in size. There is fatty infiltration of the liver noted, without evidence of mass or biliary ductal dilatation. The spleen is unremarkable. No adrenal mass is present. The pancreas has an unremarkable appearance. The kidneys are normal, without evidence of mass or hydronephrosis. The aorta is normal in caliber. There is no free fluid or adenopathy. No mass or abnormal fluid collection is seen. Pelvis: The appendix is not well-visualized. The urinary bladder is unremarkable. No inflammatory process is seen. There is no evidence of mass or adenopathy. There is no evidence of bowel obstruction. The left testicle is surgically absent. IMPRESSION: No evidence of acute intra-abdominal process. Fatty infiltration of the liver remains present, unchanged since the prior CT. Reviewed, Interpreted and Dictated by Justus Yeh III, MD Transcribed by Alyssa Garrett Authenticated and [facility]
--- NOTE | 2022-11-19 09:26 | XR_ITS ---
FINAL REPORT CLINICAL HISTORY: f/u testicular cancer FINDINGS: Two views of the chest were obtained. The heart size and pulmonary vascularity are within normal limits. The mediastinum is normal. No acute pulmonary abnormality is identified. There is no pneumothorax. The bony thorax is intact. IMPRESSION: No active cardiopulmonary disease. Reviewed, Interpreted and Dictated by Justus Yeh III, MD Transcribed by Bibi Riddle Authenticated and [facility]
[2022-11-19 10:59] LABS: Basophils # 0.1 K/mm3 (0-0.2); Basophils % 1.1 % (0.1-2.0); Eosinophils # 0.2 K/mm3 (0.0-0.4); Eosinophils % 2.7 % (0.1-12.0); Hemoglobin 16.3 g/dL (14.1-18.0); Lymphocytes # 2.3 K/mm3 (0.7-4.5); Lymphocytes % 35.3 % (10-50); Mean Corpuscular HGB Conc 32.7 g/dL (31.8-35.4); Mean Corpuscular Hemoglobin 28.5 pg (27.0-31.2); Mean Corpuscular Volume 87.3 fl (80-94); Mean Platelet Volume 7.7 fl (7.4-10.4); Monocytes # 0.6 K/mm3 (0.1-1.0); Monocytes % 8.9 % (1.7-9.3); Neutrophils # 3.3 K/mm3 (1.8-7.8); Neutrophils % 52.1 % (37.0-80.0); Platelet Count 287 K/mm3 (142-424); Red Blood Count 5.72 M/mm3 (4.60-6.20); Red Cell Distribution Width 13.3 % (11.5-17.5); White Blood Count 6.4 K/mm3 (4.8-10.8)
[2022-11-19 11:24] LABS: Alanine Aminotransferase 78 U/L (12-78); Albumin Level 4.8 g/dl (3.5-5.0); Albumin/Globulin Ratio 1.7 (1.1-1.8); Alkaline Phosphatase 84 U/L (38-126); Anion Gap 16.3 mEq/L (5-15); Aspartate Amino Transferase 46 U/L (17-59); Bilirubin,Total 0.8 mg/dl (0.2-1.3); Blood Urea Nitrogen 11 mg/dl (9-20); Calcium 9.6 mg/dl (8.4-10.2); Carbon Dioxide 23 mmol/L (22.0-30.0); Chloride 102 mmol/L (98-107); Estimated Glomerular Filt Rate 102 ml/min (>60); GFR (African American) 123 ML/MIN (>60); Globulin 2.9 g/dL (1.3-3.2); Glucose 107 mg/dl (74-100); Lactate Dehydrogenase 210 U/L (313-618); Potassium 4.3 mmoL/L (3.5-5.1); Sodium 137 mmol/L (136-145); Total Protein,Serum 7.7 g/dl (6.3-8.2)
[2022-11-19 11:46] LABS: HCG Qualitative, Serum Negative (Negative)
[2022-11-20 12:20] LABS: AFP, Tumor Marker 1.8 ng/mL (0.0-5.7)
== END ==
PROVIDERS: PCP Family Medicine; Visit Provider Internal Medicine Medical Oncology
DX: C62.92 Malignant neoplasm of left testis, unspecified whether descended or undescended (principal)
CPT/HCPCS: 36415; 71046; 74177; 80053; 82105; 83615; 84703; 85025; Q9967

== ENCOUNTER → 2022-12-22 08:19 | Outpatient (CLI) | payer OTHER, SELFPAY ==
[2022-12-22 08:29] LABS: Adenovirus F 40/41, stool Not Detected (NotDetected); Astrovirus Not Detected (NotDetected); Campylobacter Not Detected (NotDetected); Clostridium Difficile A/B, PCR Not Detected (NotDetected); Cryptosporidium Not Detected (NotDetected); Cyclospora Cayetanesis Not Detected (NotDetected); Entamoeba histolytica Not Detected (NotDetected); Enteroaggregative E coli Not Detected (NotDetected); Enteropathogenic E coli Not Detected (NotDetected); Enterotoxigenic E coli Not Detected (NotDetected); Giardia lamblia Not Detected (NotDetected); Norovirus Not Detected (NotDetected); Plesimonas Shigalloides, PCR Not Detected (NotDetected); Rotavirus A Not Detected (NotDetected); Salmonella, PCR Not Detected (NotDetected); Sapovirus Not Detected (NotDetected); Shiga-like toxin E coli Not Detected (NotDetected); Shigella Enterovasive E coli Not Detected (NotDetected); Vibrio Cholerae Not Detected (NotDetected); Vibrio, PCR Not Detected (NotDetected); Yersinia Entercolitica, PCR Not Detected (NotDetected)
== END ==
PROVIDERS: PCP Family Medicine; Visit Provider Family Medicine
DX: R19.7 Diarrhea, unspecified (principal)
CPT/HCPCS: 87507

== ENCOUNTER 2023-04-29 09:27 | Emergency (ER) | payer BC, SELFPAY ==
[2023-04-29 09:51] VITALS: BP 153/96; PULSE 112; RESP 18; TEMP 37.1; O2SAT 97; BMI 33.3
--- NOTE | 2023-04-29 09:58 | ED_ITS ---
Discharge Plan Disposition Patient Disposition: Home, Self-Care Condition: Good Prescriptions Prescriptions: No Action sertraline 50 mg tablet 50 mg PO DAILY omeprazole 20 MG tablet,delayed release (DR/EC) 20 mg PO DAILY Referrals Follow up/Referrals: Seyd Groves MD [Primary Care Provider] - See instructions Activity Restrictions/Add. Instructions Additional Instructions/Restrictions: *Monitor Temp, Over the counter Motrin or Tylenol as directed/as needed Tylenol every 4 hours and Motrin every 6 hours (as long as your family doctor has told you that you can take it) for fever or pain. and straight to ER if unable to lower temp less than 101.0 after medication given *Warm salt water gargles may help to soothe the throat *Throat Lozenges? *Warm fluids like tea with honey may help to soothe the throat? *Sleep elevated *Humidifier/Vaporizer Your throat swab was sent for culture. Those results are typically sent to your primary care. Be sure to follow up in 2-3 days with your family doctor/primary care physician if no improvement so they can review those result and treat if necessary. If you don?t have a primary care doctor, I recommend you get one but in the mean time, you will have to return to a walk in clinic Follow up IMMEDIATELY for new or worsening symptoms or no Noticeable improvement over the next 48-72 hours. 911 for difficulty breathing or swallowing You were tested for today for Upper Respiratory Panel with COVID19 your test result should be back in the next 24hours, you may Check your Results on the [facility] My Health Portal if your COVID test is positive you must Quarantine for 5 days Clinical Impressions Clinical Impression: Viral upper respiratory infection Stand Alone Forms Stand Alone Forms: Work/School Release Instructions Patient Instructions: DI for Viral Upper Respiratory Infection -- Adult, Sore Throat Discharge ED Provider: Tiffanie Diallo [facility] [place] General Stated complaint: chill, fever, nausea, sore throat Mode of Arrival: Ambulatory Source of Information: Patient Limitations: No Limitations Time Seen by Provider: 04/29/23 09:58 Description of Symptoms (Recalled from Triage Doc. by RN): Patient reports possible strep throat, fever, chills, nausea, vomiting and diarrhea. HEENT Symptoms (Recalled from RN notes): Yes Resp Symptoms (Recalled from RN notes): No Skin Symptoms (Recalled from RN notes): No MS Symptoms (Recalled from RN notes): No Functional Status (Recalled from RN notes): wnl History of Present Illness Provider Complaint: Patient states that he feels like he has strep throat States that he has been having sore throat, fever, chills, N/V/D States today he was feeling worse and throat hurt when he swallows Related Data Home Medications Medication Instructions Recorded Confirmed omeprazole 20 mg tablet,delayed 20 mg PO DAILY GERD 04/24/20 12/05/22 release sertraline 50 mg tablet 50 mg PO DAILY 11/29/20 12/05/22 Allergies Allergy/AdvReac Type Severity Reaction Status Date / Time No Known Allergies Allergy Verified 12/05/22 13:03 Worker's Comp Is this a Worker's Comp case?: [facility] Disclaimer: The information contained in this section may have been updated after the patient was seen, as this information can be updated by other users. Medical History Atrial fibrillation Cancer Gilbert's syndrome Presence of combination internal cardiac defibrillator (ICD) and pacemaker Surgical History History of placement of ear tubes Hx of inguinal herniorrhaphy Hx of tonsillectomy Status post orchiopexy Status post radical unilateral orchiectomy Family History Other Cancer Social History Smoking Status: Never smoker second hand exposure: No alcohol intake: never substance use type: denies use current occupational status: employed Travel in the last 8 weeks: None household members: family housing: house caffeine: Yes ROS Obtained: Yes All systems reviewed & no additional complaints except as documented and Yes Systems reviewed as appropriate & no additional complaints except as documented Constitutional Constitutional: Reports system reviewed and no additional complaints, except as documented, Reports as per HPI, Reports fever(s) and Reports headache(s) ENT Ears, Nose, Mouth, and Throat: Reports system reviewed and no additional complaints, except as documented, Reports as per HPI, Reports headache(s), Reports nasal congestion and Reports sore throat Cardiovascular Cardiovascular: Reports system reviewed and no additional complaints, except as documented and Reports as per HPI Respiratory Respiratory: Reports system reviewed and no additional complaints, except as documented and Reports as per HPI Gastrointestinal Gastrointestingal: Reports system reviewed and no additional complaints, except as documented, as per HPI, diarrhea, nausea and vomiting; Denies abdominal pain or cramping Neurologic Neurologic: Reports headache(s) Physical Exam General General appearance: alert and in no apparent distress ENT ENT exam: Present mucous membranes moist Expanded ENT Exam Nose exam: Absent sinus tenderness Throat exam: Present other (Pharyngeal erythema noted with PND) Respiratory Respiratory exam: Present normal lung sounds bilaterally; Absent respiratory distress or wheezes Cardiovascular Cardiovascular exam: Present regular rate, normal rhythm and normal heart sounds Abdominal Exam Abdominal exam: Present soft and normal bowel sounds; Absent distention or tenderness Neurological Exam Neurological exam: Present alert, oriented X3 and normal gait Medical Decision Making Larry Inquiry Pt receiving controlled substance: No Larry was queried for this patient: No Vital Signs: 04/29/23 09:51 Temperature 98.8 F Temperature Source Oral Pulse Rate [Radial] 112 H Respiratory Rate 18 Blood Pressure [Right Arm] 153/96 H Blood Pressure Mean [Right Arm] 115 Blood Pressure Source [Right Arm] Automatic Cuff Blood Pressure Position [Right Arm] Sitting 02 Sat by Pulse Oximetry 97 Oxygen Delivery Method Room Air Lab Data Lab results reviewed: Yes I reviewed the patient's lab results.
[2023-04-29 10:36] LABS: Adenovirus,PCR Not Detected (NotDetected); Coronavirus 19, PCR Not Detected (NotDetected); Coronavirus 229E Not Detected (NotDetected); Coronavirus NL63 Not Detected (NotDetected); Coronavirus OC43 Not Detected (NotDetected); Coronovirus HKU1,PCR Not Detected (NotDetected); Human Metapneumovirus Not Detected (NotDetected); Influenza A, PCR Not Detected (NotDetected); Influenza AH1, 2009 Not Detected (NotDetected); Influenza AH1, PCR Not Detected (NotDetected); Influenza AH3,PCR Not Detected (NotDetected); Influenza B, PCR Not Detected (NotDetected); Parainfluenza 1, PCR Not Detected (NotDetected); Parainfluenza 2, PCR Not Detected (NotDetected); Parainfluenza 3, PCR Not Detected (NotDetected); Parainfluenza 4, PCR Not Detected (NotDetected); Respiratory Syncytial Virus Not Detected (NotDetected); Rhinovirus/Enterovirus Not Detected (NotDetected)
[2023-04-29 10:41] VITALS: BP 153/96; PULSE 112; RESP 18; TEMP 37.1; O2SAT 97
[2023-04-29 12:02] LABS: UTC Influenza A Antigen Negative (Negative); UTC Strep Screen (Rapid) Negative (Negative)
[2023-04-29 12:03] LABS: UTC Influenza B Antigen Negative (Negative)
== END 2023-04-29 10:42 | disposition home or self-care (01) ==
PROVIDERS: Emergency Provider Nurse Practitioner; PCP Family Medicine
DX: J06.9 Acute upper respiratory infection, unspecified (principal); R07.0 Pain in throat; R50.9 Fever, unspecified; B34.9 Viral infection, unspecified
CPT/HCPCS: 87632; 87635; 87804; 87880; 99203; 99212; G0463

== ENCOUNTER 2023-05-06 14:38 | Emergency (ER) | payer BC, SELFPAY ==
--- NOTE | 2023-05-06 14:37 | ECG_ITS ---
APPROVED REPORT Exam: Resting ECG HR:92 bpm ECG Measurements Heart Rate 92 AXES ME 138 P 58 QRSd 93 QRS 85 QT 349 T -37 QTc 399 Conclusion SINUS RHYTHM WITH SINUS ARRHYTHMIA ST DEVIATION AND MODERATE T-WAVE ABNORMALITY, CONSIDER INFERIOR ISCHEMIA [-0.1+ mV T-WAVE IN II/aVF] ABNORMAL ECG UNCONFIRMED REPORT Electronically signed by : Milton Knight MD 05/07/2023 20:03:50
[2023-05-06 14:39] VITALS: BP 176/127; PULSE 106; RESP 18; TEMP 36.8; O2SAT 97; BMI 33.2
--- NOTE | 2023-05-06 14:41 | ED_ITS ---
I was consulted by the SUSANA, and we discussed the complexity of the problems being addressed. I approved the treatment and management plan for this patient's care in the emergency department, thus performing a substantive portion of the medical decision making. Yoav Lemus MD, ORA, FACE Discharge Plan Disposition Patient Disposition: Home, Self-Care Condition: Good Prescriptions Prescriptions: No Action sertraline 50 mg tablet 50 mg PO DAILY omeprazole 20 MG tablet,delayed release (DR/EC) 20 mg PO DAILY Referrals Follow up/Referrals: Robin Garza [Referring] - See instructions Moncho Morrison [Referring] - See instructions Joseph Evans DO [Staff Physician] - See instructions Provider,Geronimo, [Primary Care Provider] - See instructions Activity Restrictions/Add. Instructions Additional Instructions/Restrictions: Please call Dr. Garza's office, Dr. Morrison's office Clinical Impressions Clinical Impression: Acute anxiety, Hypokalemia Chest pain Qualifiers: Chest pain type: unspecified Qualified Code(s): R07.9 - Chest pain, unspecified Discharge ED Provider: Sola Liu HPI General Chief Complaint: Chest Pain Stated Complaint: cp Time Seen by Provider: 05/06/23 14:41 History of Present Illness HPI narrative: Patient presents with substernal chest pain radiating to his back that began last evening however has been persistent and has not abated and is now continued to escalate and pain. Patient reports diaphoresis and nausea but denies shortness of breath chills fever vomiting hemoptysis hematochezia melena hematemesis. Patient has a history of paroxysmal atrial fibrillation x 2 heart approximately 2 years apart and required cardioversion to break. He saw Dr. Garza for those episodes however he has not seen Dr. Garza in more than 2 years. 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 But is not currently on any rate controlling medications nor on any anticoagulants. Patient has a strong family history of coronary artery disease however it does not have a personal history of such. Patient does have a history of severe anxiety and is on sertraline for that. Patient also has history of GERD and IBS but is only on omeprazole currently. He does not currently have a neurologist or a PCP. Related Data Home Medications Medication Instructions Recorded Confirmed omeprazole 20 mg tablet,delayed 20 mg PO DAILY GERD 04/24/20 12/05/22 release sertraline 50 mg tablet 50 mg PO DAILY 11/29/20 12/05/22 Allergies Allergy/AdvReac Type Severity Reaction Status Date / Time No Known Allergies Allergy Verified 12/05/22 13:03 [facility] Disclaimer: The information contained in this section may have been updated after the patient was seen, as this information can be updated by other users. Medical History Atrial fibrillation Cancer Gilbert's syndrome Presence of combination internal cardiac defibrillator (ICD) and pacemaker Surgical History History of placement of ear tubes Hx of inguinal herniorrhaphy Hx of tonsillectomy Status post orchiopexy Status post radical unilateral orchiectomy Family History Other Cancer Social History Smoking Status: Never smoker second hand exposure: No alcohol intake: never substance use type: denies use current occupational status: employed Travel in the last 8 weeks: None household members: family housing: house caffeine: Yes ROS Obtained: Yes Systems reviewed as appropriate & no additional complaints except as documented Physical Exam General General appearance: alert, anxious and other (Diaphoretic) Head Head exam: atraumatic and normal inspection Eye Eye exam: Present normal appearance, PERRL and EOMI ENT ENT exam: Present normal exam, normal oropharynx and mucous membranes moist Neck Neck exam: Present normal inspection, full ROM and trachea midline; Absent lymphadenopathy Chest Chest inspection: Present normal inspection and symmetric chest wall rise Respiratory Respiratory exam: Present normal lung sounds bilaterally; Absent respiratory distress, wheezes or accessory muscle use Cardiovascular Cardiovascular exam: Present tachycardia, normal heart sounds, +S1, +S2 and other (Frequent PVCs and sinus arrhythmia) Abdominal Exam Abdominal exam: Present soft and normal bowel sounds; Absent tenderness, guarding or rebound Extremities Exam Extremities exam: Present normal inspection and full ROM Back Exam Back exam: Present normal inspection and full ROM; Absent tenderness Neurological Exam Neurological exam: Present alert, oriented X3 and CN II-XII intact Psychiatric Psychiatric exam: Present anxious and other (Patient is awake alert and interactive but extraordinarily anxious which he acknowledges) Skin Skin exam: Present normal color, diaphoresis and other (Hot to touch) HEART Score HEART Score HEART Score assessment performed?: Yes History (anamnesis): Slightly suspicious ECG: Non-specific disturbance Age: <45 years Risk factors: 1-2 risk factors Troponin: </= normal limit HEART Score: 2 Critical Care Critical Care Time Critical Care Time: Yes Attestation: On 05/06/23, the high probability of a clinically significant, sudden or life threatening deterioration of the following system(s) required my full and direct attention, intervention and personal management: Cardiopulmonary. The time I documented below is in addition to time spent performing reported procedures but includes the following listed in this critical care notation. Total Time Total Critical Care Time: 30 Medical Decision Making Medical Records Medical records reviewed: Yes I reviewed the patient's medical records. Larry Inquiry Pt receiving controlled substance: No Vital Signs Vital Signs: 05/06/23 14:39 05/06/23 15:00 05/06/23 16:18 Temperature 98.2 F Temperature Source Oral Pulse Rate 119 H 85 Pulse Rate [Radial] 106 H Respiratory Rate 18 12 24 Blood Pressure 199/118 H 141/84 H Blood Pressure [Right Arm] 176/127 H Blood Pressure Mean [Right Arm] 143 Blood Pressure Source [Right Arm] Automatic Cuff Blood Pressure Position [Right Arm] Sitting 02 Sat by Pulse Oximetry 97 97 96 Oxygen Delivery Method Room Air Room Air Room Air 05/06/23 16:30 05/06/23 17:30 Temperature Temperature Source Pulse Rate 83 92 H Pulse Rate [Radial] Respiratory Rate 20 15 Blood Pressure 137/85 149/93 H Blood Pressure [Right Arm] Blood Pressure Mean [Right Arm] Blood Pressure Source [Right Arm] Blood Pressure Position [Right Arm] 02 Sat by Pulse Oximetry 97 98 Oxygen Delivery Method Room Air Room Air Lab Data Lab results reviewed: Yes I reviewed the patient's lab results. Labs: Lab Results 05/06/23 14:42: WBC 9.6, RBC 5.51, Hgb 16.8, Hct 49.0, MCV 89.0, MCH 30.5, MCHC 34.3, RDW 13.3, Plt Count 311, MPV 7.8, Neut % (Auto) 49.6, Lymph % (Auto) 40.1, [place] % (Auto) 7.2, Eos % (Auto) 2.1, Baso % (Auto) 1.0, Neut # (Auto) 4.7, Lymph # (Auto) 3.8, [place] # (Auto) 0.7, Eos # (Auto) 0.2, Baso # (Auto) 0.1, PT 11.2, INR 1.04, D-Dimer 0.33, Sodium 140, Potassium 3.1 L, Chloride 104, Carbon Dioxide 24, Anion Gap 15.1 H, BUN 13, Creatinine 0.80, Estimated Creat Clear 249, Estimated GFR 116, Est GFR ( Amer) 140, Glucose 128 H, Calcium 9.9, Magnesium 2.1, Total Bilirubin 1.0, AST 57, ALT 56, Alkaline Phosphatase 96, Troponin I < 0.01, NT-Pro-B Natriuret Pep < 20.0, Total Protein 8.1, Albumin 5.0, Globulin 3.1, Albumin/Globulin Ratio 1.6, Triglycerides 185 H, Cholesterol 233 H, LDL Cholesterol Direct 142.16 H, VLDL Cholesterol 37, HDL Cholesterol 32 L, Cholesterol/HDL Ratio 7.3 H, TSH 0.97 05/06/23 14:53: SARS-CoV-2 (PCR) Not detected, Influenza A Untype (PCR) Not detected, Influenza Type B (PCR) Not detected 05/06/23 16:59: Troponin I < 0.01 05/06/23 14:42 05/06/23 14:42 Response Orders (Tests/Meds): ED MEDICATIONS Generic Name Dose Route Start Last Admin Trade Name Freq PRN Reason Stop Dose Admin Sodium Chloride 1,000 mls @ 25 mls/hr 05/06/23 14:45 05/06/23 14:51 Sod Chlor 0.9% 1000ml Bag IV 06/05/23 14:44 25 mls/hr .Q25H JASON Administration Discontinued Medications Generic Name Dose Route Start Last Admin Trade Name Freq PRN Reason Stop Dose Admin Aspirin 324 mg 05/06/23 14:41 05/06/23 14:51 Aspirin 81mg Chewable Tablet PO 05/06/23 14:42 324 mg ONCE ONE Administration Belladonna Alkaloids 60 ml 05/06/23 14:47 05/06/23 14:51 Belladonna Alkaloids 60 Ml Ml PO 05/06/23 14:48 60 ml ONCE ONE Administration Lorazepam 1 mg 05/06/23 14:41 05/06/23 14:51 Lorazepam 1mg Tablet PO 05/06/23 14:42 1 mg ONCE ONE Administration Potassium Chloride 40 meq 05/06/23 16:58 05/06/23 17:08 Potassium Chloride 20meq Tab PO 05/06/23 16:59 40 meq ONCE ONE Administration ORDERS Category Date Time Status XR chest 2V Stat Exams 05/06/23 14:41 Completed Brain Natriuretic Peptide Stat Lab 05/06/23 14:42 Completed Complete Blood Count Auto Diff Stat Lab 05/06/23 14:42 Completed Comprehensive Metabolic Panel Stat Lab 05/06/23 14:42 Completed D-Dimer Stat Lab 05/06/23 14:42 Completed Drug Screen,Urine Stat Lab 05/06/23 14:50 Ordered Lipid Panel Stat Lab 05/06/23 14:42 Completed Magnesium Stat Lab 05/06/23 14:42 Completed Prothrombin Time INR Stat Lab 05/06/23 14:42 Completed Rapid PCR Covid and Flu A/B Stat Lab 05/06/23 14:53 Completed TSH [Thyroid Stimulating Hormone] Stat Lab 05/06/23 14:42 Completed Troponin I Q3H Lab 05/06/23 14:42 Completed Troponin I Q3H Lab 05/06/23 16:59 Completed Troponin I Q3H Lab 05/06/23 20:45 Ordered ECG initial Besson Routine Y 05/06/23 14:37 Completed MDM Narrative Medical Decision Narrative: In summary patient is a 27-year-old male who presents to the emergency department for evaluation of chest pain . Patient is hypertensive with a systolic on presentation of 176/127 tachycardic at 117 at the time of my exam at the bedside and EKG on the monitor looks to be sinus tachycardia Upon arrival, and afebrile. Physical exam shows a significantly diaphoretic and visibly anxious but pleasant 27-year-old gentleman who is well-nourished well-developed. Exam is nonfocal including normal heart sounds normal breath sounds no chest back or abdominal pain to palpation. Differential diagnosis includes ACS versus PE versus gastrointestinal cause versus panic attack etc. Initial workup will be conducted with hematologic labs chest x-ray twelve-lead EKG respiratory swab. Initial interventions include oral aspirin, GI cocktail, 1 mg of Ativan p.o. Initial workup reviewed by me showed a potassium 3.1 which was repleted the remainder of his laboratory investigations were nonactionable. He had 2 negative troponins. His twelve-lead EKG showed initially sinus tachycardia and is now in a sinus rhythm without evidence of ACS. Upon repeat evaluation patient reports resolution of his chest discomfort/pain and feels significantly less anxious. I had a proximately 30-minute discussion with the patient and his mother at the bedside regarding the findings and recommended plan going forward. I discussed reestablishing care with Dr. Garza as an outpatient, I recommended establishing care with a stone polisher, and I encouraged him to seek formal psychiatric evaluation for medication management of anxiety/depression and ongoing talk therapy. Given this via shared decision making patient verbalized understanding of current plan and was in whole heart agreement. Subsequently he will be discharged home with a forementioned referrals.
--- NOTE | 2023-05-06 14:41 | XR_ITS ---
FINAL REPORT CLINICAL HISTORY: Acute chest pain COMPARISON: 04/30/2022 FINDINGS: PA and lateral views of the chest were obtained. The cardiac and mediastinal silhouettes are within normal limits. The lungs are clear. There is no pleural effusion or pneumothorax. No acute osseous abnormality is identified. IMPRESSION: No radiographic evidence of acute cardiac or pulmonary disease. Reviewed, Interpreted and Dictated by Paola Elizondo MD Transcribed by Bibi Riddle Authenticated and [facility]
--- NOTE | 2023-05-06 14:48 | ECG_ITS ---
APPROVED REPORT Exam: Resting ECG HR:87 bpm ECG Measurements Heart Rate 87 AXES IN 131 P 26 QRSd 98 QRS 70 QT 355 T -3 QTc 399 Conclusion SINUS RHYTHM WITH FREQUENT VENTRICULAR PREMATURE COMPLEXES ST DEVIATION AND MODERATE T-WAVE ABNORMALITY, ABNORMAL ECG UNCONFIRMED REPORT Electronically signed by : Milton Knight MD 05/07/2023 20:03:43
[2023-05-06] MEDS: BELLADONNA ALKALOIDS 60 ML ML PO (14:51)
[2023-05-06] MEDS: 0.9 % SODIUM CHLORIDE 1000ML 1,000 ML 25 ML IV (14:51)
[2023-05-06] MEDS: ASPIRIN 81MG CHEWABLE TABLET 324 MG PO (14:51)
[2023-05-06] MEDS: LORazepam 1MG TABLET 1 MG PO (14:51)
[2023-05-06 14:59] LABS: Basophils # 0.1 K/mm3 (0-0.2); Eosinophils # 0.2 K/mm3 (0.0-0.4); Eosinophils % 2.1 % (0.1-12.0); Hemoglobin 16.8 g/dL (14.1-18.0); Lymphocytes # 3.8 K/mm3 (0.7-4.5); Lymphocytes % 40.1 % (10-50); Mean Corpuscular HGB Conc 34.3 g/dL (31.8-35.4); Mean Corpuscular Hemoglobin 30.5 pg (27.0-31.2); Mean Platelet Volume 7.8 fl (7.4-10.4); Monocytes # 0.7 K/mm3 (0.1-1.0); Monocytes % 7.2 % (1.7-9.3); Neutrophils # 4.7 K/mm3 (1.8-7.8); Neutrophils % 49.6 % (37.0-80.0); Platelet Count 311 K/mm3 (142-424); Red Blood Count 5.51 M/mm3 (4.60-6.20); Red Cell Distribution Width 13.3 % (11.5-17.5); White Blood Count 9.6 K/mm3 (4.8-10.8)
[2023-05-06 14:59] LABS: Coronavirus 19, PCR Not Detected (NotDetected); Influenza A, PCR Not Detected (NotDetected); Influenza B, PCR Not Detected (NotDetected)
[2023-05-06 15:00] VITALS: BP 199/118; PULSE 119; RESP 12; O2SAT 97
[2023-05-06 15:06] LABS: INR 1.04 (0.9-1.1); Prothrombin Time 11.2 seconds (10.1-12.5)
[2023-05-06 15:27] LABS: Alanine Aminotransferase 56 U/L (12-78); Albumin/Globulin Ratio 1.6 (1.1-1.8); Alkaline Phosphatase 96 U/L (38-126); Anion Gap 15.1 mEq/L (5-15); Aspartate Amino Transferase 57 U/L (17-59); Blood Urea Nitrogen 13 mg/dl (9-20); Calcium 9.9 mg/dl (8.4-10.2); Carbon Dioxide 24 mmol/L (22.0-30.0); Chloride 104 mmol/L (98-107); Chol/HDL Ratio 7.3 (1-3.5); Cholesterol 233 mg/dl (140-200); Creatinine Clearance Estimated 249 mL/min (50-200); Estimated Glomerular Filt Rate 116 ml/min (>60); GFR (African American) 140 ML/MIN (>60); Globulin 3.1 g/dL (1.3-3.2); Glucose 128 mg/dl (74-100); HDL Cholesterol 32 mg/dl (40-60); Potassium 3.1 mmoL/L (3.5-5.1); Sodium 140 mmol/L (136-145); Total Protein,Serum 8.1 g/dl (6.3-8.2); Triglycerides 185 mg/dl (30-150); VLDL Cholesterol 37 mg/dL (0-40)
[2023-05-06 15:33] LABS: D-Dimer 0.33 ug/mL (0.0-0.5)
[2023-05-06 15:38] LABS: Direct LDL Cholesterol 142.16 mg/dL (100-129)
[2023-05-06 15:41] LABS: NT Pro Brain Natriuretic Pep. < 20.0 pg/mL (0-125); Troponin I < 0.01 ng/ml (0.00-0.034)
--- NOTE | 2023-05-06 15:53 | PC.NURSE ---
DR GARCIA AT BEDSIDE
[2023-05-06 15:56] LABS: Magnesium 2.1 mg/dl (1.6-2.3)
--- NOTE | 2023-05-06 16:13 | PC.NURSE ---
PT UPDATED ON POC AT THIS TIME. CALL LIGHT WITHIN REACH
[2023-05-06 16:18] VITALS: BP 141/84; PULSE 85; RESP 24; O2SAT 96
[2023-05-06 16:28] LABS: Thyroid Stimulating Hormone 0.97 uIU/mL (0.465-4.68)
[2023-05-06 16:30] VITALS: BP 137/85; PULSE 83; RESP 20; O2SAT 97
[2023-05-06] MEDS: POTASSIUM CHLORIDE 20MEQ TAB 40 MEQ PO (17:08)
[2023-05-06 17:30] VITALS: BP 149/93; PULSE 92; RESP 15; O2SAT 98
[2023-05-06 17:54] LABS: Troponin I < 0.01 ng/ml (0.00-0.034)
[2023-05-06 18:11] VITALS: BP 150/70; PULSE 84; RESP 18; TEMP 36.7; O2SAT 98
== END 2023-05-06 18:12 | disposition home or self-care (01) ==
PROVIDERS: Physician Assistant; Emergency Provider Emergency Medicine
DX: R07.9 Chest pain, unspecified (principal); F41.9 Anxiety disorder, unspecified; E87.6 Hypokalemia; I48.91 Unspecified atrial fibrillation; R00.0 Tachycardia, unspecified; E80.4 Gilbert syndrome
CPT/HCPCS: 71046; 80053; 80061; 83735; 83880; 84443; 84484; 85025; 85378; 85610; 87636; 93005; 99285

== ENCOUNTER 2023-05-20 16:10 | Outpatient (CLI) | payer BC, SELFPAY | END 2023-05-20 23:59 | LOC: RT 16:11 | PROVIDERS: PCP Internal Medicine; Visit Provider Nurse Practitioner Family | DX: I48.0 Paroxysmal atrial fibrillation (principal); R07.9 Chest pain, unspecified; E78.5 Hyperlipidemia, unspecified; F41.9 Anxiety disorder, unspecified | CPT/HCPCS: 93270 ==

== ENCOUNTER 2023-05-21 07:48 | Outpatient (CLI) | payer BC, SELFPAY ==
--- NOTE | 2023-05-21 07:53 | CT_ITS ---
FINAL REPORT CLINICAL HISTORY: H/O TESTICULAR CANCER COMPARISON: 11/19/2022 FINDINGS: CT OF THE ABDOMEN AND PELVIS WITH CONTRAST Axial CT images of the abdomen and pelvis were obtained after the administration of oral and iv contrast. Coronal reformatted images were also obtained and reviewed.This study was performed with techniques to keep radiation doses as low as reasonably achievable (ALARA). Individualized dose reduction techniques using automated exposure control or adjustment of mA and/or kV according to the patient's size were employed. Abdomen: The lung bases are clear. The heart is normal in size. There is fatty infiltration of the liver. The spleen is unremarkable. No adrenal mass is present. The pancreas has an unremarkable appearance. The kidneys are normal, without evidence of mass or hydronephrosis. The aorta is normal in caliber. There is no free fluid or adenopathy. No mass or abnormal fluid collection is seen. Pelvis: The appendix normal. The urinary bladder is unremarkable. No inflammatory process is seen. There is no evidence of mass or adenopathy. There is no evidence of bowel obstruction. IMPRESSION: No evidence of acute intra-abdominal process. No new mass or adenopathy. Reviewed, Interpreted and Dictated by Justus Yeh III, MD Transcribed by Pari Shirley Authenticated and . [facility]
--- NOTE | 2023-05-21 07:54 | XR_ITS ---
FINAL REPORT CLINICAL HISTORY: TESTICULAR CANCER COMPARISON: 05/06/2023 FINDINGS: Two views of the chest were obtained. The heart size and pulmonary vascularity are within normal limits. The mediastinum is normal. No acute pulmonary abnormality is identified. There is no pneumothorax. The bony thorax is intact. IMPRESSION: No active cardiopulmonary disease. Reviewed, Interpreted and Dictated by Justus Yeh III, MD Transcribed by Pari Shirley Authenticated and . [facility]
[2023-05-21] MEDS: IOPAMIDOL-370 (76%);100ML BOTTLE 75 ML IV (08:20)
[2023-05-21] MEDS: SODIUM CHLORIDE 0.9% 10ML SYR (RAD ONLY) 10 ML IV (08:20)
[2023-05-21 08:41] VITALS: BMI 32.5
--- NOTE | 2023-05-21 08:58 | PC.NURSE ---
05/21/23 0850 pt presents to outpt infusion dept to have blood drawn for labs as ordered per . Venipuncture performed to pt's lt ac x 1 stick using a butterfly access needle. Blood drawn for labs, needle withdrawn and site secured with 2x2 gauze and coban. Specimen sent to lab for analysis.
[2023-05-21 09:07] LABS: Basophils # 0.1 K/mm3 (0-0.2); Basophils % 1.5 % (0.1-2.0); Eosinophils # 0.2 K/mm3 (0.0-0.4); Eosinophils % 2.7 % (0.1-12.0); Hematocrit 46.3 % (42.0-52.0); Lymphocytes # 2.2 K/mm3 (0.7-4.5); Mean Corpuscular HGB Conc 34.7 g/dL (31.8-35.4); Mean Corpuscular Hemoglobin 31.5 pg (27.0-31.2); Mean Corpuscular Volume 90.8 fl (80-94); Mean Platelet Volume 8.1 fl (7.4-10.4); Monocytes # 0.5 K/mm3 (0.1-1.0); Neutrophils # 2.7 K/mm3 (1.8-7.8); Neutrophils % 47.8 % (37.0-80.0); Platelet Count 256 K/mm3 (142-424); Red Blood Count 5.09 M/mm3 (4.60-6.20); Red Cell Distribution Width 13.5 % (11.5-17.5); White Blood Count 5.7 K/mm3 (4.8-10.8)
[2023-05-21 09:16] LABS: Chloride 103 mmol/L (98-107); Potassium 3.8 mmoL/L (3.5-5.1); Sodium 137 mmol/L (136-145)
[2023-05-21 09:19] LABS: Alanine Aminotransferase 63 U/L (12-78); Albumin Level 4.8 g/dl (3.5-5.0); Albumin/Globulin Ratio 1.7 (1.1-1.8); Alkaline Phosphatase 88 U/L (38-126); Anion Gap 10.8 mEq/L (5-15); Aspartate Amino Transferase 45 U/L (17-59); Bilirubin,Total 1.5 mg/dl (0.2-1.3); Blood Urea Nitrogen 12 mg/dl (9-20); Calcium 9.8 mg/dl (8.4-10.2); Carbon Dioxide 27 mmol/L (22.0-30.0); Creatinine Clearance Estimated 244 mL/min (50-200); Estimated Glomerular Filt Rate 116 ml/min (>60); GFR (African American) 140 ML/MIN (>60); Globulin 2.8 g/dL (1.3-3.2); Glucose 112 mg/dl (74-100); Total Protein,Serum 7.6 g/dl (6.3-8.2)
[2023-05-21 10:48] LABS: Lactate Dehydrogenase 172 U/L (313-618)
[2023-05-21 11:07] LABS: HCG,Quantitative < 2 mIU/ml (0-5.42)
[2023-05-22 09:13] LABS: AFP, Tumor Marker <1.8 ng/mL (0.0-5.7)
== END 2023-05-21 09:03 | disposition home or self-care (01) ==
PROVIDERS: Internal Medicine Medical Oncology; PCP Internal Medicine; Visit Provider Internal Medicine Medical Oncology
DX: Z85.47 Personal history of malignant neoplasm of testis (principal)
CPT/HCPCS: 36415; 71046; 74177; 80053; 82105; 83615; 84702; 85025; Q9967

== ENCOUNTER 2023-06-03 18:42 | Outpatient (CLI) | payer BC, SELFPAY ==
[2023-06-03 18:29] LABS: Basophils # 0.2 K/mm3 (0-0.2); Basophils % 1.8 % (0.1-2.0); Eosinophils # 0.3 K/mm3 (0.0-0.4); Eosinophils % 2.8 % (0.1-12.0); Hematocrit 49.1 % (42.0-52.0); Hemoglobin 16.5 g/dL (14.1-18.0); Lymphocytes # 2.9 K/mm3 (0.7-4.5); Lymphocytes % 30.7 % (10-50); Mean Corpuscular HGB Conc 33.5 g/dL (31.8-35.4); Mean Corpuscular Hemoglobin 30.7 pg (27.0-31.2); Mean Corpuscular Volume 91.7 fl (80-94); Mean Platelet Volume 8.5 fl (7.4-10.4); Monocytes # 0.8 K/mm3 (0.1-1.0); Monocytes % 8.7 % (1.7-9.3); Neutrophils # 5.3 K/mm3 (1.8-7.8); Platelet Count 306 K/mm3 (142-424); Red Blood Count 5.35 M/mm3 (4.60-6.20); Red Cell Distribution Width 13.4 % (11.5-17.5); White Blood Count 9.4 K/mm3 (4.8-10.8)
[2023-06-03 18:54] LABS: Amylase 74 U/L (30-110); Lipase 346 U/L (23-300)
== END 2023-06-03 23:59 ==
LOC: LAB.DROPOF 18:43
PROVIDERS: PCP Family Medicine; Visit Provider Family Medicine
DX: R10.11 Right upper quadrant pain (principal)
CPT/HCPCS: 82150; 83690; 85025

== ENCOUNTER 2023-06-04 08:18 | Outpatient (CLI) | payer BC, SELFPAY ==
--- NOTE | 2023-06-04 08:20 | US_ITS ---
FINAL REPORT CLINICAL HISTORY: ruq pain COMPARISON: None FINDINGS: Sonographic images of the right upper quadrant were obtained. The pancreas is partially obscured.The liver has an unremarkable appearance.The gallbladder appears normal without evidence of gallstones.There is no evidence of biliary ductal dilatation.The common duct measures 3 mm. Limited images of the right kidney are unremarkable. IMPRESSION: Unremarkable right upper quadrant ultrasound. Reviewed, Interpreted and Dictated by Gabriel Negrete MD Transcribed by Pari Shirley Authenticated and [facility]
== END 2023-06-04 23:59 ==
LOC: RAD 08:19
PROVIDERS: PCP Family Medicine; Visit Provider Family Medicine
DX: R10.11 Right upper quadrant pain (principal)
CPT/HCPCS: 76705

== ENCOUNTER 2023-06-09 07:07 | Outpatient (CLI) | payer BC, SELFPAY ==
--- NOTE | 2023-06-09 07:08 | CT_ITS ---
APPROVED REPORT Document Advisor: CLINICAL INDICATION Chest Pain TECHNIQUE Image Acquisition: A 128 slice MDCT scanner ([employer] View) was used for data acquisition. A noncontrast coronary calcium scan was performed. A CT attenuation threshold of 130 Hounsfield units (HU) was used for the detection of calcium in contiguous voxels of 1 sq mm in area to be counted as individual lesions. Bolus tracking in the ascending aorta with a threshold of 180 HU was performed. Immediately afterwards, ECG synchronized cardiac CT was then performed from the cardiac base to apex using retrospective gating with ECG tube current modulation. A total of 85 mL of Isovue 370 mg/mL contrast medium was administered at 5 mL/sec followed by a saline flush using a biphasic injection protocol. A tube voltage of 120 KVp was used. The patient received the following medications prior to the cardiac CT. 0.8 mg of sublingual nitroglycerin The average heart rate at the time of acquisition was 49 bpm and regular. Image Reconstruction Transaxial images were reconstructed at 0.67 mm slide thickness. Data was reviewed interactively on an advanced workstation capable of 2 and 3-dimensional displays in all conventional reconstruction formats, including multiplanar reformations, maximum intensity projections, curved multiplanar reformations, and volume rendered reconstructions. When applicable, selected routine images describing the relevant coronary anatomy and pathology were saved and sent to PACS. Complications None Technical Quality Overall image quality was good. Coronary artery opacification was adequate. Total DLP (Dose-Length Product) is 1428.9 mGy-cm. The reported value represents the total of one or more individual components during the CT acquisition of this date and at this time, and as such, the same value may appear in more than one CT report depending on the interpreting/reporting physicians. COMPARISON None FINDINGS CT Coronary Calcium Scoring LMA (Left Main Artery) = 0 LAD (Left Anterior Descending) = 0 LCX (Left Coronary Circumflex) = 0 RCA (Right Coronary Artery) = 0 Total Calcium Score = 0 using the AJ-130 method. The interpretation of the calcium heart score is based on the following continuum*: 0 = no calcified plaque detected (risk of coronary artery disease is very low ??? less than 5%) 1-10 = calcium detected in extremely minimal levels (risk of coronary diseases is still low ??? less than 10%) 11-100 = mild levels of plaque detected with certainty (mild or minimal narrowing of heart arteries is likely) 101-400 = definite,at least moderate levels of plaque detected (relatively high risk of a heart attack within 3-5 years) >401-999 = extensive levels of plaque detected (high risk of heart attack, high levels of vascular disease are present, high likelihood of at least one significant coronary narrowing) *The calcium heart score quantifies the burden of coronary calcification/plaque in the coronary arteries. The calcium heart score is not able to evaluate the presence or burden of non-calcified (i.e. soft) plaque. There is no identifiable calcification in the aortic valve, mitral annulus or mitral valve, pericardium, or myocardium. Coronary CT Angiography The coronary arterial system is right dominant. Quantitative Stenosis Grading: Left Main (LM): The left main originates normally from the left sinus of Valsalva. The LM trifurcates into the left anterior descending artery, ramus intermedius, and left circumflex artery. The LM is patent with no evidence of atherosclerosis. Left Anterior Descending (LAD) and Diagonal Branches: The LAD gives off 2 diagonal branch(es). The LAD and its branches are patent with no evidence of atherosclerosis. There is a tin-VMI-oevsubdbop bridge measuring approximately 1 mm in depth and 7 mm in length.. Ramus-intermedius (RI): The RI is patent. Left Circumflex (LCX) and Obtuse Marginals (OM): The LCX gives off 1 Obtuse Marginal (OM) branch. The LCX and its branches are patent with no evidence of atherosclerosis. Right Coronary Artery (RCA): The RCA originates normally from the right sinus of Valsalva. The RCA gives off a posterior descending artery (PDA) and posterolateral (PL) branches. The RCA and its branches are patent with no evidence of atherosclerosis. Non-Coronary Cardiac Findings: Analysis of the left ventricular (LV) structure and function was performed after 3-D reconstruction of the LV from axial images, with user-corrected automatic contouring for assessment of LV volumes and user-defined reconstruction from oblique planes for measurement of 3-D cardiac structure and function. -The left ventricle systolic function is normal. -There is no left atrial appendage filling defect. Two right pulmonary veins and two left pulmonary veins drain normally into the left atrium. -No pericardial thickening or calcification. -Central and branch pulmonary arteries in the draoe-eh-snab are unremarkable. -Thoracic aorta within the visualized thoracic aortic-branches in the [id number] is unremarkable. Extracardiac Structures No significant extra-cardiac findings. Note, however, that this study is focused on the cardiac findings. IMPRESSION -Absence of coronary calcification with an Agatston score = 0 using the AJ-130 method. -No evidence of significant flow-limiting atherosclerosis of the coronary arteries. -Presence of jrq-BFJ-tgjlqmwecv bridge measuring approximately 1 mm in depth and 7 mm in length.. -CAD-RADS 0. Management recommendations per ACC/AHA guidelines*, as clinically appropriate. *Recommendations: CAD RADS 0: Reassurance. Consider non-atherosclerotic causes of chest pain. CAD RADS 1: Consider non-atherosclerotic causes of chest pain. Consider preventive therapy and risk factor modification. CAD RADS 2: Consider non-atherosclerotic causes of chest pain. Consider preventive therapy and risk factor modification, particularly for patients with nonobstructive plaque in multiple segments. CAD RADS 3: Consider further functional testing. Consider symptom-guided anti-ischemic and preventive pharmacotherapy as well as risk factor modification per published guideline statements. CAD RADS 4A: Consider further functional testing or invasive coronary angiography with revascularization per published guideline statements. Consider symptom-guided anti-ischemic and preventive pharmacotherapy as well as risk factor modification per published guideline statements. CAD RADS 4B: Invasive coronary angiography recommended with revascularization per published guideline statements. Consider symptom-guided anti-ischemic and preventive pharmacotherapy as well as risk factor modification per published guideline statements. CAD RADS 5: Consider invasive angiography and/or viability assessment with revascularization per published guideline statements. Consider symptom-guided anti-ischemic and preventive pharmacotherapy as well as risk factor modification per published guideline statements. CRITICAL RESULT None COMMUNICATION Per this written report The coronary and cardiac findings of this CCTA were reviewed, reported, and signed by Samm Mejia MD ([employer] Making Machinist) Conclusion Electronically signed by : Martina Mejia MD 06/10/2023 13:41:48
[2023-06-09 07:30] VITALS: BP 126/69; PULSE 55; RESP 16; O2SAT 97
[2023-06-09 07:32] VITALS: BMI 32.0
[2023-06-09 07:49] VITALS: BP 131/68; PULSE 58; RESP 16; O2SAT 99
[2023-06-09] MEDS: NITROGLYCERIN 0.4MG SL TABLET 0.800000000000000044 MG SL (07:49)
[2023-06-09 07:54] VITALS: BP 109/70; PULSE 61; RESP 18; O2SAT 97
[2023-06-09 07:59] VITALS: BP 121/55; PULSE 53; RESP 16; O2SAT 97
[2023-06-09 08:02] VITALS: BP 101/63; PULSE 72; RESP 16; O2SAT 98
--- NOTE | 2023-06-09 08:03 | CA_ITS ---
APPROVED REPORT EXAM: Comprehensive 2D, Doppler, and color-flow Echocardiogram [employer]: Soha Bowens CRT Ht: 6 ft 5 in Wt: 275lbs BSA: 2.56 BP: 132/74 mmHg Indications: Chest Pain, Atrial Fibrillation, Palpitations, hx testicular CA 2D Dimensions Left Atrium 3.34 cm LVEF (Rodrigues's) 52.40 % LVOT 1.89 cm (M/F) 1.5-2.5 LV Volume 136.00 mL LA Volume 26.90 mL LA Volume Index 10.50 mL/m2 (M/F) 16-34 EF AP4 52.70 % EF AP2 54.2 % EF BP 52.4 % GL Strain -17.9 % M-Mode Dimensions RVDd 2.89 cm (0.9-2.6) LVDd 5.00 cm (3.5-5.7) Ao Diam 3.78 cm (2.0-3.7) LVDs 3.20 cm (3.5-5.7) IVSd 1.59 cm (0.6-1.1) PWd 0.66 cm (0.6-1.1) EF (Teich) 65.30% FS 36.00% EDV (Teich) 118.20 mL ESV (Teich) 41.00 mL LV Diastology MED E' 9.6 (>= 7 cm/sec) MED A' 9.20 cm/s LAT E' 36.7 (>= 10 cm/sec) LAT A' 25.80 cm/s Aortic Valve AoV Peak Jean. 130.0 (50-130 cm/s) AO Peak GR. 6.70 mmHg Tricuspid Valve TR P. Velocity 416.00 cm/s RAP Estimate 10.00 mmHg RVSP 79.40 mmHg Left Ventricle The left ventricle is normal size. The left ventricular systolic function is normal. The left ventricular ejection fraction is within the normal range. There is normal left ventricular wall thickness. There is normal LV segmental wall motion. The left ventricular diastolic function is normal. LVEF is 55%. Right Ventricle The right ventricle is normal size. The right ventricular systolic function is normal. Atria The left atrium size is normal. The right atrium size is normal. There is no Doppler evidence of interatrial shunt. Aortic Valve The aortic valve opens well. There is no aortic valvular stenosis. No aortic regurgitation is present. Mitral Valve The mitral valve is normal in structure. No evidence of mitral valve stenosis. There is no mitral valve regurgitation noted. Tricuspid Valve The tricuspid valve leaflets are thin and pliable. Mild tricuspid regurgitation. RVSP is 20-25 mmHg. Pulmonic Valve The pulmonary valve is normal in structure. Trace pulmonic regurgitation. Great Vessels The aortic root is normal in size. The ascending aorta is not well-visualized. IVC is normal in size and collapses >50% with inspiration. Pericardium There is no pericardial effusion. Other Information Study Quality: Fair Conclusion Normal biventricular systolic function. Mild TR. Electronically signed by : Martina Mejia MD 06/10/2023 10:21:01
[2023-06-09] MEDS: IOPAMIDOL-370 (76%);100ML BOTTLE 85 ML IV (08:15)
[2023-06-09] MEDS: SODIUM CHLORIDE 0.9% 10ML SYR (RAD ONLY) 10 ML IV (08:15)
[2023-06-09] MEDS: 0.9 % SODIUM CHLORIDE 50 ML VIAL IV (08:15)
[2023-06-09 08:16] VITALS: BP 108/52; PULSE 53; RESP 18; O2SAT 98
== END 2023-06-09 08:18 | disposition home or self-care (01) ==
PROVIDERS: Visit Provider Nurse Practitioner Family
DX: R07.9 Chest pain, unspecified (principal); I48.0 Paroxysmal atrial fibrillation; E78.5 Hyperlipidemia, unspecified; F41.9 Anxiety disorder, unspecified
CPT/HCPCS: 75571; 75574; 93306; Q9967

== ENCOUNTER 2024-12-15 13:37 | Outpatient (CLI) | payer OTHER, SELFPAY ==
--- OUTSIDE RECORDS SUMMARY | 2020-11-22 09:00 | XMS_ITS | Encounter Summary ---
Author Organization [facility] Address [address] [place] [address] Care Team Providers Care Financial Aid Director Name Role Phone Syed Groves MD Primary Care Provider [phone] Reason for Referral * Hospital - Outpatient (Routine) - Closed Specialty Diagnoses / Procedures Referred By Rosibel smith Referred To Contact Sleep Medicine Diagnoses Snoring Obstructive sleep apnea, adult Procedures Home Sleep Study Xavier Phillips MD [address] [place] [address] Phone: tel: fax: Xavier Phillips MD [address] [place] [address] Phone: tel: fax: Referral ID Status Reason Start Date Expiration Date Visits Re quested Visits Authorized [id number] Closed 11/19/2020 01/17/2021 1 1 Reason for Visit * Hospital - Outpatient (Routine) - Closed Specialty Diagnoses / Procedures Referred By Rosibel smith Referred To Contact Sleep Medicine Diagnoses Snoring Obstructive sleep apnea, adult Procedures Home Sleep Study Xavier Phillips MD [address] [place] [address] Phone: tel: fax: Xavier Phillips MD [address] [place] [address] Phone: tel: fax: Referral ID Status Reason Start Date Expiration Date Visits Re quested Visits Authorized [id number] Closed 11/19/2020 01/17/2021 1 1 Encounter Details Date Type Department Care Team (Latest Contact Info) Description 11/22/2020 9:00 AM EDT Hospital Encounter [facility] [address] [place] [address] Xavier Phillips MD [address] [facility] [address] [place] [address] Snoring; Obstructive sleep apnea, adult Social History Tobacco Use Types Packs/Day Years Used Date Smoking Tobacco: Never Smokeless Tobacco: Never Alcohol Use Standard Drinks/Week Comments Yes 0 (1 standard drink = 0.6 oz pur e alcohol) Once every two months Abuse Screen Answer Date Recorded Unsafe at Home or Work/School Not on file Feels Threatened by Someone? Not on file 11/2022 Does Anyone Keep You from Co ntacting Others or Doint Things Outside the Home? Not on file 12/15/2022 Physical Sign of Abuse Present Not on file 1 Housing Stability Answer Date Recorded Current Living Arrangements Not on file 11/2022 Potentially Unsafe Housing Conditions Not on jesika e 12/15/2022 Family and Community Support Answer Cyrus e Recorded Help with Day-to-Day Activities Not on file 12/15/2022 Lonely or Isolated Not on file 12/15/2022 Employment Answer Date Recorded Do you want help finding or keeping work or a brittany b? Not on file 12/15/2022 Disabilities Answer Date Recorded Concentrating, Remembering, or Making Decisions Difficulty Not on file 12/15/2022 Doing Errands Independently Difficulty Not on fi le 12/15/2022 Education Answer Date Recorded Help with school or training? Not on file Preferred Language Not on file 12/15/2022 Sex and Gender Information Value Date Recorded Sex Assigned at Not on file Legal Sex Male 10:56 AM EDT Gender Identity Not on file Sexual Orientation Not on file documented as of this encounter Last Filed Vital Signs Vital Sign Reading Time Taken Comments Blood Pressure - - Pulse - - Temperature - - Respiratory Rate - - Oxygen Saturation - - Inhaled Oxygen Concentration - - Weight 134 kg (295 lb) 11/22/2020 4:11 PM EDT Height 195.6 cm (6' 5 ) 11/22/2020 4:11 PM EDT Body Mass Index 34.98 11/22/2020 4:11 PM EDT documented in this encounter Plan of Treatment Not on file documented as of this encounter Procedures Procedure Name Priority Date/Time Associated Diagnosis Comments WATCHPAT Routine 11/23/2020 7:23 AM EDT Snoring Obstructive sleep apnea, adult documented in this encounter Results * WATCHPAT (11/23/2020 7:23 AM EDT) Narrative Xavier Phillips MD - 12/13/2020 9:31 PM EDT Home sleep apnea test with watch pat device report Patient Name: Yan Diaz Interpreting Physician: Xavier Phillips MD Date of : 1995 Referring Physician: Constance Butts APRN Primary Care Physician: Syed Groves MD Date of Study: Clinical Information Patient is a 25 y.o. male. Who is seen for snoring and nonrestorative sleep. He has had a history of atrial fibrillation about a year ago he is sleepy during the day. He notes occasional palpitations blood pressures 120/66 pulse 78 respirations 16 body mass index 34.98. He has Mallampati class III main Patient presents with an [place] Sleepiness Scale of 11/24 Methods used for Home Sleep Testing: Patient had a home sleep test using an WatchPat device that uses peripheral arterial tone to measure arterial volume changes at the fingertip showing sympathetic nervous system activation. Sleep stages are determined based on signal characteristics and built in actigraphy can help determine sleep/wake periods. Both signal attenuation and pulse rate determine arousals correlating with respiratory events, and the pulse oximeter sensor determines blood oxygen saturations. Snoring and body position is determined through an intergrated sensor measuring decibals and actigraphy. Home sleep apnea test results Diagnostic Summary TOTAL RECORDING TIME: Total Recording Time (TIB) (min): 477 minutes TOTAL SLEEP TIME: Total Sleep Time (TST)(min): 413 minutes SLEEP LATENCY: Sleep Latency (min): 25 STAGE R. LATENCY: Stage R Latency (min): 38 min SLEEP EFFICIENCY: Sleep Efficiency (%): 86.49 % STAGE R % TST 39.0% Respiratory Data pAHI: AHI: 1.6 pRDI: RDI (if applicable): 10.5 AHI is within normal limits. His RDI was significantly higher. He has scattered snoring. Cardiac AVG HR DURING SLEEP Avg HR During Sleep: 67 bpm HIGHEST HR DURING SLEEP Highest HR During Sleep: 108 bpm Oximetry MIN SPO2 Min SpO2: 93 % O2 SATURATION, MEAN VALUE Arterial Oxygen Saturation, Mean Value (%): 96 % Diagnostic Respiratory Index Summary by Body Position Supine pAHI, TOTAL AHI, TOTAL : 2 pRDI, TOTAL RDI, TOTAL : 9.7 TST (min) TST (MIN) : 236.5 Duration (Min) No data recorded Left pAHI, TOTAL AHI, TOTAL : 1.3 pRDI, TOTAL RDI, TOTAL : 16.8 TST (min) TST (min) : 46.5 Duration (Min) No data recorded Right pAHI, TOTAL AHI, TOTAL : 0.9 pRDI, TOTAL RDI, TOTAL: 9.7 TST (min) TST (min) : 130 Duration (Min) No data recorded Prone AHI, TOTAL No data recorded RDI, TOTAL No data recorded TST (min) No data recorded Duration (Min) No data recorded Impression: negative for apnea with some signs of upper airway obstruction and primary snoring Plan: would encourage weight loss , would encourage the patient to avoid alcohol and sedatives close to bedtime , would encourage lateral position sleep , could consider oral appliance therapy, repeat testing and Would consider further evaluation with polysomnogram since he does have a history of arrhythmias. He has significant daytime sleepiness. Follow-up: He is to follow-up in sleep clinic and follow-up with Constance Butts APRN and Dr. Yaneli Phillips MD [facility] Sleep Medicine Pulmonary and Critical Care Medicine Electronically signed by: Xaiver Phillips MD 12/13/20 21:25 EDT Xavier Phillips MD [facility] ORDERABLES Final Re sult documented in this encounter Visit Diagnoses Diagnosis Snoring Other dyspnea and respiratory abnormality Obstructive sleep apnea, adult documented in this encounter Care Teams Financial Aid Director Relationship Specialty Start Date End Date Syed Groves MD [address] [facility] [address] [facility] [address] [place] [id number] PCP - General Family Medicine 10/26/15 documented as of this encounter
[2024-12-15 20:28] LABS: Hematocrit 48.6 % (42.0-52.0); Hemoglobin 16.4 g/dL (14.1-18.0); Immature Granulocytes % 0.2 %; Mean Corpuscular HGB Conc 33.7 g/dL (31.8-35.4); Mean Corpuscular Hemoglobin 29.9 pg (27.0-31.2); Mean Corpuscular Volume 88.7 fl (80-94); Nucleated Red Blood Cells % 0 %; Platelet Count 313 K/mm3 (142-424); Red Blood Count 5.48 M/mm3 (4.60-6.20); Red Cell Distribution Width-SD 40.3 fL; White Blood Count 9.3 K/mm3 (4.8-10.8)
[2024-12-15 21:12] LABS: Hemoglobin A1C 5.4 % (4.0-6.0)
[2024-12-15 21:35] LABS: Alanine Aminotransferase 35 U/L (12-78); Albumin Level 4.5 g/dl (3.5-5.0); Albumin/Globulin Ratio 1.6 (1.1-1.8); Alkaline Phosphatase 114 U/L (38-126); Amylase 61 U/L (30-110); Anion Gap 17.6 mEq/L (5-15); Aspartate Amino Transferase 26 U/L (17-59); Bilirubin,Total 1.0 mg/dl (0.2-1.3); Blood Urea Nitrogen 12 mg/dl (9-20); Calcium 9.7 mg/dl (8.4-10.2); Carbon Dioxide 25 mmol/L (22.0-30.0); Chloride 100 mmol/L (98-107); Cholesterol 282 mg/dl (140-200); Creatinine,Serum 1.00 mg/dl (0.66-1.25); Estimated Glomerular Filt Rate 88 ml/min (>60); GFR (African American) 107 ML/MIN (>60); Globulin 2.9 g/dL (1.3-3.2); Glucose 77 mg/dl (74-100); HDL Cholesterol 35 mg/dl (40-60); Lipase 212 U/L (23-300); Potassium 4.6 mmoL/L (3.5-5.1); Sodium 138 mmol/L (136-145); Total Protein,Serum 7.4 g/dl (6.3-8.2); Triglycerides 207 mg/dl (30-150)
--- OUTSIDE RECORDS SUMMARY | 2024-12-16 02:09 | XMS_ITS | Clinical Summary ---
Author Organization [facility] Address [address] [place] [id number] Care Team Providers Care Battery Parts Assembler Name Role Phone Xavier Marte MD Primary Care Provider [phone] Source Comments [facility] is fully rolled out with thefollowing exceptions:[facility] Allergies No known active allergies Medications cyproheptadine (PERIACTIN) 4 MG tabletIndications:C hronic nausea Take 1 Tab (4 mg total) by mouth 2 times a day. 60 Tab 1 4 Active hyoscyamine (LEVBID) 0.375 MG sustained release tablet Take 0.75 mg by mouth every 12 hours. Active ondansetron (ZOFRAN ODT) 4 MG orally disintegrating tablet Take 4 mg by mouth 3 times a day. Active omeprazole (PriLOSEC) 40 MG delayed release capsuleIndications: Nausea with vomiting Take 1 Cap (40 mg total) by mouth 2 times a day. Granules should not be chewed or crushed 60 Cap 2 4 Active metoclopramide (REGLAN) 10 MG tabletIndications:N ausea alone Take 1 Tab (10 mg total) by mouth 4 times a day. 120 Tab 0 4 Active Active Problems Problem Noted Date Diagnosed Date Nausea with vomiting 06/14/2013 Poor appetite 06/14/2013 History of abnormal weight loss 06/14/2013 Chronic diarrhea of unknown origin 06/14/2013 Social History Tobacco Use Types Packs/Day Years Used Date Smoking Tobacco: Never Smokeless Tobacco: Never Sex and Gender Information Value Date Recorded Sex Assigned at Not on file Legal Sex Male 2:09 PM EDT Gender Identity Not on file Sexual Orientation Not on file Last Filed Vital Signs Vital Sign Reading Time Taken Comments Blood Pressure 128/66 06/14/2013 8:51 AM EDT Pulse 68 06/14/2013 8:51 AM EDT Temperature 36.8 C (98.2 F) 08/30/2012 9:26 AM EDT Respiratory Rate 16 08/30/2012 10:11 AM EDT Oxygen Saturation 100% 08/30/2012 10:11 AM EDT Inhaled Oxygen Concentration - - Weight 90.4 kg (199 lb 4.7 oz) 06/17/2013 1:50 P M EDT Height 190.5 cm (6' 3 ) 06/14/2013 8:51 AM EDT Body Mass Index 24.91 06/14/2013 8:51 AM EDT Plan of Treatment Health Maintenance Due Date Last Done Comments MMR IMMUNIZATION (1 of 1 - S tandard series) 11/28/1996 DTAP/Tdap/Td IMMUNIZATION (1 - Tdap) 11/28/2002 VARICELLA IMMUNIZATION (1 of 2 - 13+ 2-dose series) 11/28/2008 HEPATITIS B IMMUNIZATION (1 of 3 - 19+ 3-dose series) 11/28/2014 HPV IMMUNIZATION (1 - 3-dose SCDM series) 11/28/2022 AMB SEASONAL FLU VACCINE (#1) 11/07/2024 COVID-19 Vaccine (2023-2 5 season) 2024 HIB IMMUNIZATION Aged Out No longer e ligible based on patient's age to complete this topic IPV IMMUNIZATION Aged Out No longer e ligible based on patient's age to complete this topic MCV4 IMMUNIZATION Aged Out No longer eligible based on patient's age to complete this topic MENINGOCOCCAL B VACCINE Aged Out No l onger eligible based on patient's age to complete this topic PNEUMOCOCCAL IMMUNIZATION Aged Out No longer eligible based on patient's age to complete this topic Respiratory Syncytial Virus (RSV) <20mo Aged Out No longer eligible b ased on patient's age to complete this topic Insurance Care Teams Battery Parts Assembler Relationship Specialty Start Date End Date Xavier Marte MD [address] [facility] [address] [place] [phone] PCP - General External Family Practice 06/14/13
--- OUTSIDE RECORDS SUMMARY | 2024-12-16 02:09 | XMS_ITS | Clinical Summary ---
Author Organization [facility] Address [address] [place] [address] Care Team Providers Care Pharmacy Innovation Assistant Name Role Phone Syed Groves MD Primary Care Provider [phone] Allergies No known active allergies Medications sertraline (ZOLOFT) 50 MG tablet Take 50 mg by mouth Daily. 10/26/2020 Active omeprazole (priLOSEC) 20 MG capsule 20 mg Daily. 11/13/2020 Active Active Problems Problem Noted Date Diagnosed Date PAF (paroxysmal atrial fibrillation) 09/27/2019 Gastroesophageal reflux disease without esophagi tis 09/27/2019 Family History Medical History Relation Name Comments Cancer Father No Known Problems Maternal Grandfather No Known Problems Maternal Grandmother Hyperlipidemia Mother Diabetes Other Heart disease Other Hypertension Other No Known Problems Paternal Grandfather No Known Problems Paternal Grandmother No Known Problems Sister Relation Name Status Comments Father Alive Maternal Grandfather Maternal Grandmother Alive Mother Alive Other Paternal Grandfather Paternal Grandmother Sister Alive Social History Tobacco Use Types Packs/Day Years [...] Sign Reading Time Taken Comments Blood Pressure 128/70 06/03/2021 11:43 AM EDT Pulse 112 06/03/2021 11:43 AM EDT Temperature 35.8 C (96.4 F) 04/26/2021 10:33 AM EST Respiratory Rate 20 04/26/2021 10:33 AM EST Oxygen Saturation 97% 06/03/2021 11:43 AM EDT Inhaled Oxygen Concentration - - Weight 141 kg (310 lb) 06/03/2021 11:43 AM EDT Height 195.6 cm (6' 5 ) 06/03/2021 11:43 AM EDT Body Mass Index 36.76 06/03/2021 11:43 AM EDT Plan of Treatment Health Maintenance Due Date Last Done Comments TDAP/TD VACCINES (1 - Tdap) 11/28/2014 ANNUAL PHYSICAL 09/23/2019 HEPATITIS C SCREENING 09/23/2019 INFLUENZA VACCINE 10/07/2024 01/02/2020 Pneumococcal Vaccine 0-49 Aged Out No longer eligible based on patient's age to complete this topic Care Teams Pharmacy Innovation Assistant Relationship Specialty Start Date End Date Syed Groves MD [address] [place] [address] PCP - General Family Medicine 10/26/15
--- OUTSIDE RECORDS SUMMARY | 2024-12-16 02:09 | XMS_ITS | Clinical Summary ---
Author Organization [facility] Address [address] [place] [address] Care Team Providers Care [employer] Name Role Phone Xavier Marte MD Primary Care Provider [phone] Allergies No known active allergies Medications methocarbamol (Robaxin) 500 MG tablet Take 1 tablet (500 mg) by mouth 4 (four) times a day as needed for muscle spasms for up to 5 days. 20 tablet 04/26/2024 Active Active Problems No known active problems Social History Tobacco Use Types Packs/Day Years Used Date Smoking Tobacco: Never Assessed Sex and Gender Information Value Date Recorded Sex Assigned at Not on file Legal Sex Male 6:16 PM EDT Gender Identity Not on file Sexual Orientation Not on file Last Filed Vital Signs Vital Sign Reading Time Taken Comments Blood Pressure 128/79 04/26/2024 8:58 PM EST Pulse 61 04/26/2024 8:58 PM EST Temperature 36.7 C (98 F) 04/26/2024 8:58 PM EST Respiratory Rate 20 04/26/2024 8:58 PM EST Oxygen Saturation 97% 04/26/2024 8:58 PM EST Inhaled Oxygen Concentration - - Weight 136 kg (300 lb) 04/26/2024 4:43 PM EST Height 190.5 cm (6' 3 ) 04/26/2024 4:43 PM EST Body Mass Index 37.5 04/26/2024 4:43 PM EST Plan of Treatment Health Maintenance Due Date Last Done Comments [facility]-Depression Screening 1995 [facility]-HIV Screening 1995 [facility]-Hepatitis C Screening 1995 [facility]-Infant/Child/Adol SDOH Screenings 1995 [facility]-Hepatitis B Vaccines (3 of 3 - 3-dose series) 02/01/1997 12/07/1996, 07/06/1996 [facility]-Obesity Intervention 11/28/2001 [facility]-Varicella Vaccines (1 of 2 - 13+ 2-dose series) 11/28/2008 [facility]- SDOH Screenings 11/28/2013 [facility]-Adult SDOH Screenings 11/28/2013 [facility]-DTaP,Tdap,and Td Vaccine s (1 - Tdap) 11/28/2014 HPV Vaccines (1 - 3-dose SCD M series) 11/28/2022 [id number] Vaccine (3 - 2024- season) 2024 06/27/2020, 05/29/2020 [facility]-Influenza Vaccine (#1) 2024 01/02/2020 [facility]-Zoster Vaccines (1 of 2) 11/28/2045 [facility]-HIB Vaccines Aged Out No longer e ligible based on patient's age to complete this topic [facility]-Hepatitis A Vaccines Aged Out No longer eligible based on patient's age to complete this topic [facility]-IPV Vaccines Aged Out No longer e ligible based on patient's age to complete this topic [facility]-Pneumococcal Vaccine: Pediatrics (0 to 5 Years) and At-Risk Patients (6 to 49 Years) Aged Out No longer eligible b ased on patient's age to complete this topic [facility]-Rotavirus Vaccines Aged Out No lo nger eligible based on patient's age to complete this topic Insurance [employer] Care Teams [employer] Relationship Specialty Start Date End Date Xavier Marte MD [address] [facility] [place] [id number] PCP - General 07/20/20
== END 2024-12-15 23:59 ==
LOC: LAB.DROPOF 12-16 02:07
PROVIDERS: PCP Family Medicine; Visit Provider Family Medicine
DX: R10.9 Unspecified abdominal pain (principal); E66.9 Obesity, unspecified; R11.10 Vomiting, unspecified
CPT/HCPCS: 80053; 80061; 82150; 83036; 83690; 85025